=== PATIENT | female | born 1955 | race Caucasian/White ===

== ENCOUNTER 2019-10-02 14:27 | Outpatient (CLI) | payer OTHER, SELFPAY ==
--- NOTE | ~2019-10-02 | MM_ITS ---
EXAMINATION: MM screening tristen BI w ko HISTORY: Screening mammogram TECHNIQUE: Craniocaudal and mediolateral oblique 3-D tomosynthesis images were obtained and synthetic 2-D images were generated. CAD analysis was submitted and interpreted. COMPARISON: 07/10/2018, 05/29/2017 bilateral digital screening mammogram examinations 06/08/2017 diagnostic left digital mammogram and left breast ultrasound BREAST PARENCHYMAL COMPOSITION: The breasts are heterogeneously dense, which may obscure small masses . FINDINGS: Occasional benign calcifications. There is a biopsy marker on the right. History of prior bilateral benign breast biopsies. There is no evidence of suspicious mass, calcification, or architectural distortion to suggest malignancy in eit her breast. There has been no suspicious interval change. IMPRESSION: 1. No mammographic evidence of malignancy. 2. Recommend routine screening mammography in one year. BI-RADS Category 2: Benign finding(s). Reviewed, dictated and finalized at location A.
== END 2019-10-02 14:28 | disposition home or self-care (01) ==
PROVIDERS: PCP Internal Medicine; Visit Provider Obstetrics & Gynecology
DX: Z12.31 Encounter for screening mammogram for malignant neoplasm of breast (principal)
CPT/HCPCS: 77063; 77067

== ENCOUNTER 2020-06-17 12:00 | Emergency (ER) | payer OTHER, SELFPAY ==
--- NOTE | 2020-06-17 12:06 | ED.GENADULT ---
HPI - General Adult General Chief complaint: Eye Problems Stated complaint: eye problems Time Seen by Provider: 06/17/20 12:06 Source: patient Mode of arrival: ambulatory Limitations: no limitations History of Present Illness HPI narrative: 64-year-old female patient presents to the [facility] with complaints of irritation and pain to the right eye that started yesterday. Patient states she has had a little bit of sensitivity to light without eye but denies any new vision changes. Patient denies injury to the eye that she is aware of. Patient states she does wear glasses but denies wearing contacts. Patient denies any copious amounts of discharge or waking up with any dried crusting to the area. Patient states there is a little bit of pain to the eye. Patient denies any fevers, body aches or chills. Related Data Home Medications Medication Instructions Recorded Confirmed diltiazem HCl 180 mg 180 mg PO DAILY 05/15/19 06/17/20 capsule,extended release 24 hr glucosamine sulfate 500 mg capsule 500 mg PO BID 05/15/19 03/15/20 calcium-vit D3-ferrous fumarate tablet PO 10/20/19 03/15/20 600 mg-125 unit-18 mg tablet magnesium oxide 500 mg capsule 500 mg PO DAILY 10/20/19 03/15/20 Allergies Allergy/AdvReac Type Severity Reaction Status Date / Time Penicillins Allergy Unknown Unknown Verified 03/15/20 11:57 Review of Systems Review of Systems: Narrative: CONSTITUTIONAL: Denies fever, chills, or sweats. EYES: Denies visual changes, positive right eye redness and pain with sensitivity to light, denies discharge. ENT: Denies rhinorrhea, congestion, sore throat, or otalgia. CARDIOVASCULAR: Denies chest pain, palpitations, or edema. RESPIRATORY: Denies cough or dyspnea. GASTROINTESTINAL: Denies abdominal pain, nausea, vomiting, or diarrhea. GENITOURINARY: Denies dysuria or hematuria. SKIN: Denies rash or itching. MUSCULOSKELETAL: Denies back pain, joint pain, or myalgia. NEUROLOGIC: Denies headache, numbness, or weakness. PSYCHIATRIC: Denies anxiety or depression. [facility] Past Medical History Medical History Anxiety Arthritis Bone spur of right foot GERD (gastroesophageal reflux disease) Hyperlipidemia Hypertension Patellofemoral arthritis of right knee Skin cancer, basal cell Supraventricular tachycardia, nonsustained Tendinitis of right rotator cuff Vitamin D deficiency Surgical History Surgical History History of arthroscopy of right knee History of back surgery (~1997) History of section (~1986) History of surgical removal of lesion Hx of knee surgery (~1982) Previous section (~1981) Status post debridement of bone spur (~2018) Family History Family History Mother Family history of bipolar disorder Father Family history of pancreatic cancer Patient's father is Sibling Family history of malignant neoplasm of kidney Other Cerebrovascular accident Depression Family history of arthritis Family history of heart disease in male family member before age 55 Social History Social History Smoking status: Never smoker Alcohol intake: never Comments At the time of my signature I agree with nursing past medical history, surgical, social, and family history. There is no relevant family history pertinent to the presenting complaint. Exam Narrative: Exam Narrative: GENERAL: Well-appearing, well-nourished, and in no acute distress. HEAD: Normocephalic, atraumatic. EYES: PERRLA and EOM intact without limitation or complaint of pain, no periorbital soft tissue swelling ,no erythema, warmth or tenderness noted, no obvious deformity. No crusting or swelling.clear tearing noted from right eye.positive photophobia. No nystagmus No FB or lesion on lid eversion. Corneas gr
[2020-06-17 12:15] VITALS: BP 150/90; PULSE 76; RESP 20; TEMP 36.4; O2SAT 98
== END 2020-06-17 12:36 | disposition home or self-care (01) ==
PROVIDERS: Emergency Provider Nurse Practitioner Family; PCP Internal Medicine
DX: S05.01XA Injury of conjunctiva and corneal abrasion without foreign body, right eye, initial encounter (principal); X58.XXXA Exposure to other specified factors, initial encounter; M19.90 Unspecified osteoarthritis, unspecified site; K21.9 Gastro-esophageal reflux disease without esophagitis; E78.5 Hyperlipidemia, unspecified; I10 Essential (primary) hypertension; M17.11 Unilateral primary osteoarthritis, right knee; Z85.828 Personal history of other malignant neoplasm of skin; E55.9 Vitamin D deficiency, unspecified
CPT/HCPCS: 99213; G0463

== ENCOUNTER 2020-12-13 10:35 | Outpatient (CLI) | payer OTHER, SELFPAY ==
--- NOTE | ~2020-12-13 | MM_ITS ---
EXAMINATION: MM screening tristen BI w ko HISTORY: Screening mammogram TECHNIQUE: Craniocaudal and mediolateral oblique 3-D tomosynthesis images were obtained and synthetic 2-D images were generated. CAD analysis was submitted and interpreted. COMPARISON: 10/12/2019, 07/10/2018 bilateral digital screening mammogram examinations 06/08/2017 diagnostic left mammogram and left breast ultrasound 06/08/2017 bilateral digital screening mammogram BREAST PARENCHYMAL COMPOSITION: The breasts are heterogeneously dense, which may obscure small masses . FINDINGS: There is a biopsy marker on the right. There is history of prior bilateral benign breast bi opsies. Focal architectural distortion is noted in the mid to lower outer left breast (MLO Tomosynthesis imag e ). Diagnostic left mammogram and left breast ultrasound examination are recommended. Otherwise there is no evidence of suspicious mass, calcification, or architectural distortion to sugg est malignancy in either breast. There has been no other suspicious interval change. IMPRESSION: 1. Architectural distortion in the mid to lower outer left breast 2. Diagnostic left mammogram and left breast ultrasound examination are recommended. BI-RADS Category 0: Incomplete: Needs additional imaging evaluation. Reviewed, dictated and finalized at location A. IMPRESSION: 1. Architectural distortion in the mid to lower outer left breast 2. Diagnostic left mammogram and left breast ultrasound examination are recomme nded. BI-RADS Category 0: Incomplete: Needs additional imaging evaluation.
== END 2020-12-13 10:36 | disposition home or self-care (01) ==
LOC: ANHIMG 10:39
PROVIDERS: PCP Internal Medicine; Visit Provider Obstetrics & Gynecology
DX: Z12.31 Encounter for screening mammogram for malignant neoplasm of breast (principal); R92.8 Other abnormal and inconclusive findings on diagnostic imaging of breast
CPT/HCPCS: 77063; 77067

== ENCOUNTER 2021-01-11 13:18 | Outpatient (CLI) | payer OTHER, SELFPAY ==
--- NOTE | ~2021-01-11 | MM_ITS ---
EXAMINATION: MM diagnostic mammo unilat LT HISTORY: Follow-up architectural distortion. Previous radial scar biopsy. TECHNIQUE: Additional 3-D tomosynthesis images of the left breast were performed and synthetic 2-D im ages were generated. CAD analysis was submitted and interpreted. COMPARISON: Comparison to multiple prior studies sequentially, with oldest reviewed study dated 10/2016. BREAST PARENCHYMAL COMPOSITION: The breasts are heterogenously dense, which may obscure small masses. FINDINGS: Stable focal architectural distortion outer aspect of the left breast which is indicated by scar marker on the skin surface, consistent with previous radial scar biopsy. No new masses, calcifi cations or architectural distortion in the left breast to suggest malignancy. IMPRESSION: 1. No mammographic evidence for malignancy in the left breast. 2. Routine yearly screening mammogram and regular clinical breast examination are recommended. BI-RADS Category 2: Benign finding(s). Reviewed, dictated and finalized at location A. IMPRESSION: 1. No mammographic evidence for malignancy in the left breast. 2. Routine yearly screening mammogram and regular clinical breast examination a re recommended. BI-RADS Category 2: Benign finding(s).
== END 2021-01-11 13:19 | disposition home or self-care (01) ==
LOC: ANHIMG 13:19
PROVIDERS: PCP Internal Medicine; Visit Provider Obstetrics & Gynecology
DX: R92.8 Other abnormal and inconclusive findings on diagnostic imaging of breast (principal)
CPT/HCPCS: 77065

== ENCOUNTER 2021-01-25 10:47 | Outpatient (CLI) | payer OTHER, SELFPAY ==
[2021-01-25 11:32] LABS: Anion Gap 6 mmol/L (8-16); Blood Urea Nitrogen 23 mg/dL (7-17); Carbon Dioxide 27 mmol/L (22-30); Chloride 107 mmol/L (98-107); Cholesterol 209 mg/dL (0-200); Estimated Glomerular Filt Rate > 60; Glucose 80 mg/dL (65-110); HDL Direct 74 mg/dL; Sodium 140 mmol/L (137-145); Triglycerides 131 mg/dL (<150)
[2021-01-25 11:42] LABS: LDL Cholesterol Direct 93 mg/dL
[2021-01-25 12:24] LABS: Vitamin D 25 Hydroxy 68.4 ng/mL
== END 2021-01-25 10:48 | disposition home or self-care (01) ==
LOC: ANHLAB 10:51
PROVIDERS: PCP Internal Medicine; Visit Provider Internal Medicine
DX: E55.9 Vitamin D deficiency, unspecified (principal); I10 Essential (primary) hypertension; E78.5 Hyperlipidemia, unspecified
CPT/HCPCS: 36415; 80048; 80061; 82306

== ENCOUNTER 2021-12-05 10:34 | Emergency (ER) | payer OTHER, SELFPAY ==
--- NOTE | ~2021-12-05 | XR_ITS ---
EXAMINATION: XR wrist LT min 3V DATE: 12/05/2021 11:23 INDICATION: Left wrist injury. TECHNIQUE: 4 views of left wrist were obtained. COMPARISON: None. FINDINGS: There is a transverse fracture of distal radius with involvement of the distal radioulnar j oint. The distal fracture fragment demonstrates impaction. There is neutral tilt of the distal articu lar surface. Ulnar styloid is intact. There is mild osteoarthritis of first carpometacarpal joint. IMPRESSION: 1. Transverse fracture of distal radius. Reviewed, dictated and finalized at location B.
[2021-12-05 11:05] VITALS: BP 130/83; PULSE 71; RESP 18; TEMP 37.4; O2SAT 100
--- NOTE | 2021-12-05 11:12 | ED.UPPEXIN ---
HPI - Extremity Injury (Upper) General Stated Complaint: lt wrist injury Time Seen by Provider: 12/05/21 11:13 Source: patient Mode of arrival: ambulatory Limitations: no limitations History of Present Illness HPI narrative: Ms. Corey is a 66-year-old female patient presenting to the clinic today with complaints of the left wrist injury/pain. She reports she was playing pickle ball this morning and fell injuring her left wrist. States that it is painful to do any kind of range of motion to her wrist. Has pain and swelling localized to the radius of the left wrist. Related Data Home Medications Medication Instructions Recorded Confirmed diltiazem HCl 180 mg 180 mg PO DAILY 05/15/19 02/21/21 capsule,extended release 24 hr (Cardizem CD) glucosamine sulfate 500 mg capsule 500 mg PO BID 05/15/19 02/21/21 calcium-vit D3-ferrous fumarate tablet PO 10/20/19 02/21/21 600 mg-125 unit-18 mg tablet magnesium oxide 500 mg capsule 500 mg PO DAILY 10/20/19 02/21/21 Allergies Allergy/AdvReac Type Severity Reaction Status Date / Time Penicillins Allergy Unknown Unknown Verified 02/21/21 09:34 Review of Systems Review of Systems: Pertinent positives per HPI. Patient denies any fever, chills, rash, headache, visual changes, dizziness, cough, runny nose, sore throat, shortness of breath, chest pain, palpitations, nausea, vomiting, diarrhea, constipation, abdominal pain, or any urinary issues. PMFSH Past Medical History Medical History Anxiety Arthritis Bone spur of right foot GERD (gastroesophageal reflux disease) Hyperlipidemia Hypertension Patellofemoral arthritis of right knee Skin cancer, basal cell Supraventricular tachycardia, nonsustained Tendinitis of right rotator cuff Vitamin D deficiency Surgical History Surgical History History of arthroscopy of right knee History of back surgery (~1997) History of section (~1986) History of surgical removal of lesion Hx of knee surgery (~1982) Previous section (~1981) Status post debridement of bone spur (~2018) Family History Family History Mother Family history of bipolar disorder Father Family history of pancreatic cancer Patient's father is Sibling Family history of malignant neoplasm of kidney Other Cerebrovascular accident Depression Family history of arthritis Family history of heart disease in male family member before age 55 Social History Social History Smoking status: Never smoker Alcohol intake: never Comments At the time of my signature, I reviewed and agree with the nursing past medical, surgical, social, and family history. There is no relevant family history pertinent to the patient complaint. Exam Narrative: General: Well-developed, well nourished, in no apparent distress Head: Normocephalic, atraumatic. Cardio: Regular rate and rhythm, s1 and s2 normal, no murmur appreciated. Resp: Clear to auscultation bilaterally, no rhonchi, rales, wheezing or rubs. Musculoskeletal: No deformity, swelling noted over the radius, tenderness to palpation over the distal radius, unable to perform any range of motion due to pain, peripheral pulse strong, no cyanosis, cap refill less than 3 seconds, normal gait and station Course Course Emergency Course: Portions of this record may have been created with voice recognition software. Level of Care: Express Care Visit Vital Signs Vital signs: Vital signs reviewed MDM - Extremity Injury (Upper) MDM Narrative Medical decision making narrative: At the time of visit patient is resting comfortably on the exam table. X-ray was performed and patient has a transverse closed left distal radius fracture. Orthopedic referral wa
== END 2021-12-05 12:04 | disposition home or self-care (01) ==
PROVIDERS: Emergency Provider Nurse Practitioner Family; PCP Internal Medicine
DX: S52.502A Unspecified fracture of the lower end of left radius, initial encounter for closed fracture (principal); W19.XXXA Unspecified fall, initial encounter; M19.90 Unspecified osteoarthritis, unspecified site; K21.9 Gastro-esophageal reflux disease without esophagitis; E78.5 Hyperlipidemia, unspecified; I10 Essential (primary) hypertension; Z85.828 Personal history of other malignant neoplasm of skin; E55.9 Vitamin D deficiency, unspecified
CPT/HCPCS: 29125; 73110; 99214; A4565; G0463

== ENCOUNTER 2022-01-11 13:38 | Outpatient (CLI) | payer OTHER, SELFPAY ==
--- NOTE | ~2022-01-11 | MM_ITS ---
EXAMINATION: MM screening tristen BI w ko HISTORY: Screening TECHNIQUE: Craniocaudal and mediolateral oblique 3-D tomosynthesis images were obtained and synthetic 2-D images were generated. CAD analysis was submitted and interpreted. COMPARISON: Comparison to multiple prior studies sequentially, with oldest reviewed study dated 10/2016. BREAST PARENCHYMAL COMPOSITION: The breasts are heterogenously dense, which may obscure small masses FINDINGS: There is no evidence of suspicious mass, calcification, or architectural distortion to sugg est malignancy in either breast. There has been no suspicious interval change. IMPRESSION: 1. No mammographic evidence of malignancy. 2. Recommend routine screening mammography in one year. BI-RADS Category 1: Negative Reviewed, dictated and finalized at location A.
== END 2022-01-11 13:39 | disposition home or self-care (01) ==
LOC: ANHIMG 13:40
PROVIDERS: PCP Internal Medicine; Visit Provider Obstetrics & Gynecology
DX: Z12.31 Encounter for screening mammogram for malignant neoplasm of breast (principal)
CPT/HCPCS: 77063; 77067

== ENCOUNTER 2023-01-16 13:09 | Outpatient (CLI) | payer MEDICARE, SELFPAY ==
--- NOTE | 2023-01-16 14:00 | NEURO_ITS ---
Impression: # Complains of numbness of lower extremities. History of back surgery in the past. 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 # Clinical correlation recommended. Nerve Conduction Studies Anti Sensory Summary Table Stim Site NR Peak (ms) P-T Amp (?V) Site1 Site2 Delta-P (ms) Dist (cm) Henok (m/s) Left Sup Fibular Anti Sensory (Ant Lat Mall) NO RESPONSE 14 cm NR 14 cm Ant Lat Mall 16.0 Right Sup Fibular Anti Sensory (Ant Lat Mall) 14 cm 3.2 12.5 14 cm Ant Lat Mall 3.2 16.0 50 Left Sural Anti Sensory (Lat Mall) Calf 3.3 8.4 Calf Lat Mall 3.3 16.0 48 Right Sural Anti Sensory (Lat Mall) Calf 4.0 11.2 Calf Lat Mall 4.0 16.0 40 Motor Summary Table Stim Site NR Onset (ms) O-P Amp (mV) Site1 Site2 Delta-0 (ms) Dist (cm) Henok (m/s) Left Peroneal Motor (Vastus Med) Ankle 4.7 2.1 Popit Ankle 10.1 42.0 42 Popit 14.8 2.2 Right Peroneal Motor (Vastus Med) Ankle 4.7 2.1 Popit Ankle 8.5 41.0 48 Popit 13.2 1.8 Left Tibial Motor (Abd Celeste Brev) Ankle 4.5 1.3 Knee Ankle 11.4 43.0 38 Knee 15.9 0.6 Right Tibial Motor (Abd Celeste Brev) Ankle 4.9 2.7 Knee Ankle 10.5 44.0 42 Knee 15.4 1.1 F Wave Studies NR F-Lat (ms) L-R F-Lat (ms) Left Peroneal (Mrkrs) (EDB) 59.18 2.12 Right Peroneal (Mrkrs) (EDB) 57.06 2.12 Left Tibial (Mrkrs) (Abd Hallucis) 59.04 1.30 Right Tibial (Mrkrs) (Abd Hallucis) 57.74 1.30 MTDD
== END 2023-01-16 13:10 | disposition home or self-care (01) ==
LOC: ANHNEURO 13:11
PROVIDERS: PCP Nurse Practitioner
DX: G57.82 Other specified mononeuropathies of left lower limb (principal)
CPT/HCPCS: 95910

== ENCOUNTER 2023-03-20 15:41 | Outpatient (CLI) | payer MEDICARE, OTHER, SELFPAY ==
--- NOTE | ~2023-03-20 | MM_ITS ---
EXAMINATION: MM screening tristen BI w ko HISTORY: Screening mammogram TECHNIQUE: Craniocaudal and mediolateral oblique 3-D tomosynthesis images were obtained and synthetic 2-D images were generated. CAD analysis was submitted and interpreted. COMPARISON: 01/11/2022 bilateral screening mammogram 01/11/2021 diagnostic left mammogram 12/13/2020, 10/02/2019, 07/10/2018 bilateral screening mammogram examinations BREAST PARENCHYMAL COMPOSITION: The breasts are heterogeneously dense, which may obscure small masses . FINDINGS: Biopsy marker on the right. Stable mild architectural distortion of the left since 9. History of prior bilateral benign breast biopsies. There is no evidence of suspicious mass, calcif ication, or architectural distortion to suggest malignancy in either breast. There has been no suspic ious interval change. IMPRESSION: 1. No mammographic evidence of malignancy. 2. Recommend routine screening mammography in one year. BI-RADS Category 2: Benign finding(s). Reviewed, dictated and finalized at location A.
== END 2023-03-20 15:42 | disposition home or self-care (01) ==
PROVIDERS: PCP Family Medicine; Visit Provider Obstetrics & Gynecology
DX: Z12.31 Encounter for screening mammogram for malignant neoplasm of breast (principal)
CPT/HCPCS: 77063; 77067

== ENCOUNTER 2023-12-21 14:02 | Outpatient (CLI) | payer MEDICARE, SELFPAY ==
--- NOTE | ~2023-12-21 | XR_ITS ---
XR shoulder RT min 2V Ordering provider: Rogelio Luque MD History: . Pain in right shoulder AFTER PLAYING PICKLE BALL . Comparison: November 15, 2020 FINDINGS: BONES: No acute fracture or dislocation. JOINT SPACES: The acromioclavicular joint is normal. The glenohumeral joint is normal. SOFT TISSUES: Normal. IMPRESSION: No acute osseous abnormality right shoulder. Reviewed, dictated and finalized at location A.
== END 2023-12-21 14:03 | disposition home or self-care (01) ==
LOC: ANHIMG 14:05
PROVIDERS: PCP Family Medicine; Visit Provider Orthopaedic Surgery
DX: M25.511 Pain in right shoulder (principal)
CPT/HCPCS: 73030

== ENCOUNTER 2024-05-19 14:01 | Outpatient (CLI) | payer MEDICARE, SELFPAY ==
--- NOTE | ~2024-05-19 | MM_ITS ---
EXAMINATION: MM screening tristen BI w ko HISTORY: Screening TECHNIQUE: Craniocaudal and mediolateral oblique 3-D tomosynthesis images were obtained and synthetic 2-D images were generated. CAD analysis was submitted and interpreted. COMPARISON: Comparison to multiple prior studies sequentially, with oldest reviewed study dated 07/10. BREAST PARENCHYMAL COMPOSITION: Dense: The breasts are heterogeneously dense, which may obscure small masses FINDINGS: There are developing focal asymmetries centered in the upper outer quadrant of the right br east, middle third. The left breast is stable without evidence for malignancy. IMPRESSION: 1. Developing right breast asymmetries. 2. Additional mammographic views and possible breast ultrasound are recommended. BI-RADS Category 0: Incomplete: Needs additional imaging evaluation. Reviewed, dictated and finalized at location B. SPECIALIST IMPRESSION: 1. Developing right breast asymmetries. 2. Additional mammographic views and possible breast ultrasound are recommended . BI-RADS Category 0: Incomplete: Needs additional imaging evaluation.
== END 2024-05-19 14:02 | disposition home or self-care (01) ==
LOC: ANHIMG 14:04
PROVIDERS: PCP Family Medicine; Visit Provider Obstetrics & Gynecology
DX: Z12.31 Encounter for screening mammogram for malignant neoplasm of breast (principal); R92.8 Other abnormal and inconclusive findings on diagnostic imaging of breast
CPT/HCPCS: 77063; 77067

== ENCOUNTER 2025-01-21 17:09 | Emergency (ER) | payer MEDICARE, SELFPAY ==
--- NOTE | ~2025-01-21 | XR_ITS ---
EXAM: [id number] DATE: 01/21/2025 17:47 HISTORY: pain . COMPARISON: None available. FINDINGS: Decreased mineralization. Craniocervical association and atlantoaxial joint are aligned. M ild degenerative change at the atlantodental interval. No prevertebral soft tissue swelling. Mild rev ersal of the cervical lordosis centered at C4-5. Trace anterolisthesis at C4-5. Trace retrolisthesis at C5-6. Vertebral body heights are maintained. Normal disc spaces. Mild disc space narrowing at C5-6 . Mild-moderate facet hypertrophy and sclerosis in the lower cervical spine. IMPRESSION: Osteopenia. No definite fracture or traumatic malalignment detected in the cervical spine . Minimal grade 1 listheses at C4-5 and C5-6, presumably on a degenerative basis. If pain persists or clinical suspicion of injury is high, recommend CT or MRI of the cervical spine for further evaluati on Reviewed, dictated and finalized at location K. IMPRESSION: Osteopenia. No definite fracture or traumatic malalignment detected in the cervical spine. Minimal grade 1 listheses at C4-5 and C5-6, presumably on a degenerative basis. If pain persists or clinical suspicion of injury is hi gh, recommend CT or MRI of the cervical spine for further evaluation
--- OUTSIDE RECORDS SUMMARY | 2025-01-21 17:11 | XMS_ITS | Referral Summary ---
Author Organization [facility] Address [address] [place] [address] Care Team Providers Care Obedience Trainer Name Role Phone No, Physician Primary Care Provider [phone] Encounters Date Type Department Care Team Description 12/17/[address] [place] [id number] Kary Armando MD 12/17/2024 2:10 PM CDT Clinical Support [address] [place] [address] Age-related osteoporosis without current pathological fracture 12/17/2024 2:40 PM CDT Office Visit [address] [phone] Kary Armando MD Age-related osteoporosis without current pathological fracture (Primary Dx) from Last 3 Months Allergies Active Allergy Reactions Criticality Noted Date Comments Penicillins Rash,Hives Medium 05/17/2015 Medications aspirin (ASPIR-81) 81 mg tablet 81 mg. 0 0 09/04/2016 Active multivitamin capsule 0 0 09/04/2016 Active GLUCOSAMINE HCL/CHONDR PAGE A NA (GLUCOSAMINE-CH ONDROITIN) 750-600 mg tablet 0 0 09/04/2016 Active calcium carbonate-vitam in D3 (CALCIUM 600 + D,3,) 1500 mg (600 mg elemental) -200 units per tablet 0 0 09/04/2016 Active MAGNESIUM ORALIndications :hypomagnesemia 500 mg Acti ve dilTIAZem XR (dilTIAZem CD) 240 mg 24 hr capsule Take 1 capsule (240 mg total) by mouth daily 90 capsule 2 07/03/2024 Active Active Problems Problem Noted Date Diagnosed Date Other osteoporosis without current pathological fracture 01/23/2024 Atrial fibrillation 12/02/2019 Atrial flutter 12/02/2019 Palpitations 09/27/2016 Supraventricular tachycardia 06/30/2016 Social History Tobacco Use Types Packs/Day Years Used Date Smoking Tobacco: Never Smokeless Tobacco: Never Alcohol Use Standard Drinks/Week Comments No 0 (1 standard drink = 0.6 oz pur e alcohol) Hunger Vital Sign Answer Date Recorded Within the past 12 months, y ou worried that your food would run out before you got the money to buy more. Never true 02/18/20 Within the past 12 months, t he food you bought just didn't last and you didn't have money to get more. Never true 02/18/2024 Personal Safety Answer Date Recorded Have you ever been in or are you currently in a harmful physical or emotional relationship or is someone making you feel afraid or unsafe? 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 Gender Identity Female 03/15/2020 10:12 AM CDT Sexual Orientation Not on file Last Filed Vital Signs Vital Sign Reading Time Taken Comments Blood Pressure 135/85 02/18/2024 1:30 PM CDT Pulse 67 02/18/2024 1:30 PM CDT Temperature 36.6 C (97.9 F) 02/18/2024 1:30 PM CDT Respiratory Rate 15 02/18/2024 1:30 PM CDT Oxygen Saturation 93% 02/18/2024 1:30 PM CDT Inhaled Oxygen Concentration - - Weight 64.4 kg (142 lb) 12/17/2024 2:22 PM CDT Height 168.9 cm (5' 6.5) 12/17/2024 2:22 PM CDT Body Mass Index 22.58 12/17/2024 2:22 PM CDT Plan of Treatment Not on file Procedures Procedure Name Priority Date/Time Associated Diagnosis Comments DEXA TBS AXIAL SKELETON BONE DENSITY 1 OR MORE SITES Schedule Routine, Read Routine (OP Routine) 12/17/2024 2:16 PM CDT Age-related osteoporosis without current pathological fracture from Last 3 Months Results * Dexa TBS Axial Skeleton Bone Density 1 or more sites (12/17/2024 2:16 PM CDT) Anatomical Region Laterality Modality Wrist, Body N/A Radiographic Sue ging Narrative 12/17/2024 4:16 PM CDT Patient Name: Tammy Farah Date of : 1955 Date of scan: 12/17/2024 Bone mineral density was performed on a [employer] Discovery Densitometer. Based on machine cross-calibration and precision studies the least significant changes of this densitometer is 0.024 g/cm2 at the spine, 0.020 g/cm2 at the total proximal femur, and 0.014g/cm2 at the forearm. HISTORY: This is a 69 y.o. postmenopausal female with a history of osteoporosis. She reports that she has never smoked. She has never used smokeless tobacco. Currently on treatment with calcium, vitamin D, and zoledronic acid (Reclast), previously treated with raloxifene (Evista), and current complaint of arm pain. INDICATIONS: Menopause status, treatment monitoring, history of prior wrist fracture, and history of osteoporosis. FINDINGS: BONE MINERAL DENSITY OF THE LUMBAR SPINE Bone Mineral Density (BMD) of the lumbar spine was measured from L1-L3 and the average density was calculated to be 0.813 gm/cm2. This corresponds to a T-score (standard deviations from the mean of young adults) of -1.9. When compared to the previous study of 12/11/2023 there has been a 0.048 gm/cm (6.2%) increase in bone density that is considered significant. BONE MINERAL DENSITY OF THE PROXIMAL FEMUR Bone Mineral Density (BMD) of the left hip total was found to be 0.820 gm/cm2. This corresponds to a T-score standard deviations from the mean of young adults of -1.0. Femoral neck is 0.692 gm/cm2 with a T-score (standard deviations from the mean of young adults) of -1.4. When compared to the previous study of 12/11/2023 there has been no significant changes in bone density. SUMMARY: Bone mineral density shows evidence of low bone mass at the lumbar spine and proximal femur and moderately increased fracture risk (Osteopenia). There has been a significant increase in bone density since previous measurement. L4 excluded from bone mineral density analysis of the lumbar spine due to bone density being more than 1 standard deviation discrepant relative to one adjacent vertebra. Clinical correlation is recommended. The lumbar spine Trabecular Bone Score is 1.248 which suggests partially degraded bone microarchitecture compared to the general population. Final decisions regarding diagnostic or therapeutic recommendations should include BMD, TBS, additional clinical risk factors as well the clinical context of the patient. Please see attached TBS results for further details. ADDITIONAL COMMENTS: Postmenopausal Women and Men Over 50: Diagnostic criteria: Osteoporosis: BMD at or below -2.5 T-score; Osteopenia (low bone mass): BMD between -1.0 and -2.5 T-score. If the patient has a history of a fragility fracture, a fracture that occurred with trauma equivalent to a fall from a standing position or less, then the diagnosis is osteoporosis regardless of bone density. The history and data sections of the bone mineral density scan were prepared by Fransisca Tipton) DIETER who is accredited by the International Society of Clinical Densitometry. The overall patient assessment and scan interpretation were performed by Kary Armando M.D. who is certified by the International Society of Clinical Densitometry. [id number] Kary Armando MD [facility] [place] DXA PROCEDURES Final Resu lt from Last 3 Months Insurance [employer] MEDICARE [facility] A[facility] MEDIC[facility] Care Teams Obedience Trainer Relationship Specialty Start Date End Date No, Physician PCP - General 11/26/18
--- OUTSIDE RECORDS SUMMARY | 2025-01-21 17:12 | XMS_ITS | Continuity of Care Document ---
Author Organization [facility] Address [address] [place] [address] Phone Care Team Providers Care Cash Posting Representative Name Role Phone Noel Ron Unavailable Unavailable Advance Directives Directive Yes / No Effective Date File Name No Information Encounters Encounter Description Practice Location Reason(s) For Visit Diagnoses Date Provider Providers Copied on Encounter [facility], [address] [place] [address], [facility], tel:[phone] *[facility] No Information Asaf Cohen. [address] [place] [address], [facility], . tel:[phone] Family History Family Member Type Diagnosis Age At Onset No Information Payers Payer name Insurance type Covered constitution party ID Authoriza tion(s) No Information Social History Type Description Quantity Date Captured Comments Sex Female Smoking Status No Information Chief Complaint And Reason For Visit No Information Reason For Referral Reason For Referral No Information History Of Present Illness Encounter Date Complaint History Of Prese nt Illness No Information Functional Status Date Functional Assessmen t No Information Instructions Date Instruction Additional Infor mation No Information Assessments Type Assessment Date No Information Patient Care Teams Name Effective Dates (start - stop) Status Members No Information
--- OUTSIDE RECORDS SUMMARY | 2025-01-21 17:12 | XMS_ITS | Clinical Summary ---
Author Organization [facility] Address [address] [place] [address] Care Team Providers Care Sales Operations Assistant Name Role Phone Luiz Choudhury MD Unavailable [phone] Antonio MD Primary Care Provider [phone] Source Comments [facility],non-owned Affiliates and Associated Physician Practices is amultiple site organization consisting of ambulatory clinics and hospital sitesin [place], [place], [place] and [place]. This disclosure is being madepursuant to the Care Everywhere program and may not contain all information available regarding this patient. Last updated 18.[facility] [employer] Allergies Active Allergy Reactions Criticality Noted Date Comments Penicillins 10/09/2011 Medications * Be aware that medications may not be up to date on this document. Alwaysverify current medications with the patient. meloxicam (MOBIC) 7.5 MG tablet Take 1 Tab by mouth 2 times daily. 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 Gender Identity Not on file Sexual Orientation Not on file Plan of Treatment Health Maintenance Due Date Last Done Comments BONE DENSITY TESTING 1957 COLOGUARD (AGES 45-75) - COL ON CA SCREENING 1957 COLON MONITORING 1957 COLONOSCOPY - COLON CA SCREENING 1957 CT COLONOGRAPHY - COLON CA SCREENING 1957 Colorectal Cancer Screening 1957 FIT - COLON CA SCREENING 1957 FLEX SIG - COLON CA SCREENING 1957 LIPID TESTING 1957 MAMMOGRAM 1957 HEPATITIS C SCREENING 08/13/1975 PNEUMOCOCCAL VACCINE 50+ (1 of 1 - PCV) 2007 ZOSTER VACCINE (1 of 2) 2007 COVID-19 VACCINE (1 - 2023-2 5 season) 2024 DEPRESSION SCREENING 06/25/2024 MEDICARE AWV CALENDAR YEAR 2024 INFLUENZA VACCINE (#1) 2025 DTAP/TDAP/TD VACCINES (2 - T d or Tdap) 03/07/2028 03/07/2018 Respiratory Syncytial Virus (RSV) Vaccine Pt: or over 60 yrs (1 - 1-dose 75+ series) 2032 HEPATITIS B VACCINE Aged Out No longe r eligible based on patient's age to complete this topic HIB VACCINE Aged Out No longer eligi ble based on patient's age to complete this topic HPV VACCINE Aged Out No longer eligi ble based on patient's age to complete this topic MENINGOCOCCAL (Group B) VACC INE SHARED DECISION-MAKING Aged Out No longer eligibl e based on patient's age to complete this topic MENINGOCOCCAL GROUPS A/C/Y/W VACCINE Aged Out No longer eligible b ased on patient's age to complete this topic Insurance AETNA AETNA MEDICARE ADV AETNA Care Teams Sales Operations Assistant Relationship Specialty Start Date End Date Ward Antonio MD [address] [place] [address] PCP - General Internal Medicine 10/09/11 Luiz Choudhury MD Orthopedic Surgery 10/09/11
--- OUTSIDE RECORDS SUMMARY | 2025-01-21 17:12 | XMS_ITS | Encounter Summary ---
Author Organization [facility] Address [address] [place] [address] Care Team Providers Care Technical Manager [employer] Name Role Phone Lucrecia Candelario MD Primary Care Provider + Encounter Details Date Type Department Care Team (Latest Contact Info) Description 03/02/2008 Outpatient Historical [facility] Alicia Barnes MD [address] [place] [address] [place] [phone] Marisa Nation MD [address] [facility] Dept [place] [address] Abnormal Mammogram, Unspecified; Mammographic Microcalcification; Encounter for Long-Term (Current) Use of Other Medications Social History Tobacco Use Types Packs/Day Years Used Date Smoking Tobacco: Never Assessed Comments Unknown Sex and Gender Information Value Date Recorded Sex Assigned at Not on file 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 Gender Identity Not on file Sexual Orientation Not on file documented as of this encounter Plan of Treatment Not on file documented as of this encounter Procedures Procedure Name Priority Date/Time Associated Diagnosis Comments PATHOLOGY Routine 03/02/2008 5:00 PM CDT MAMMO BREAST SPECIMEN RT Routine 03/02/2008 12:15 PM CDT MAMMO DIAGNOSTIC UNI RIGHT W OR WO CAD Routine 03/02/2008 12:15 PM CDT XR CONSULTATION Routine 03/02/2008 12:15 PM CDT MAMMO STEREOTACTIC BREAST BX RT Routine 03/02/2008 12:14 PM CDT documented in this encounter Results * PATHOLOGY (03/02/2008 5:00 PM CDT) FINAL REPORT [facility] [address], [place] [address] Patient: TAMMY FARAH : 1955 Procedure Date: 03/02/2008 Accession Date: 03/03/2008 Case No: [id number] Ordering Dr: MARISA NATION Case types AW, BW, FW, NW and SH are performed by [facility], [place], [place] SURGICAL PATHOLOGY & NON-GYNECOLOGIC CYTOPATHOLOGY REPORT DIAGNOSIS RIGHT BREAST, 9-GAUGE CORE BIOPSY: - COLUMNAR CELL CHANGE. - MICROCALCIFICATIONS PRESENT. Specimen Description: Right breast calcs. Operative Procedure: Core biopsy. Patient Information/History/Di agnosis: Calcifications; rule out DCIS. Gross: Received in a single container and labeled GaganTammy klein Danna. right breast calc are eight fibrofatty core biopsy tissues, each 0.3 cm in diameter and measuring 1.1, 1.0, 1.1, 1.3, 1.1, 1.5, 1.4, and 1.3 cm in lengths. The entire specimen is submitted as follows: in cassettes A1 and A2-three cores each; A3-two cores. [facility] 03.03.2008 12:12 pm Microscopic: Sections are labeled [id number], Tammy Farah Danna. The core biopsy from the right breast displays foci of columnar cell change associated with microcalcifications. COMMENT: Columnar cell lesions of the breast may be broadly categorized as (1) columnar cell change, with or without atypia, and (2) columnar cell hyperplasia, with or without atypia. Columnar cell lesions without atypia require no further treatment. The limited available clinical data suggest that columnar cell lesions with atypia, also designated as flat epithelial atypia, but without complex architectural patterns, may be associated with a very low risk of progression to invasive carcinoma, the magnitude of which has not been established. When columnar cell lesions with atypia (flat epithelial atypia) are encountered in needle core biopsies or in limited en bloc biopsies, subsequent excision of the lesion is recommended. Based upon current understanding, the presence of columnar cell lesions with atypia (flat epithelial atypia) alone in larger, excisional specimens requires no additional surgical management. Reference: Adv Mary Pathol 2003;10:113-124. BBK/GIANNI 03.04.2008 10:37 am Staging Form: No. ELECTRONIC SIGNATURE FOR DAMON MACK M.D.- 03/04/08 11:19 am INTERFACE SYSTEM 03/02/2008 5:00 PM CDT us Marisa Nation MD PATHOLOGY/CYTOLOGY ORDERA BLES Final Result INTERFACE SYSTEM Refer to clinic/hospital department * MAMMO BREAST SPECIMEN RT (03/02/2008 12:15 PM CDT) Anatomical Region Laterality Modality Breast Right Other 03/02/2008 12:1 5 PM CDT Narrative 03/02/2008 4:33 PM CDT [address] [address] Admit Date: 03/02/2008 TAMMY FARAH Sex: F Admit Prov: ALICIA MYLES Date: 1955 Primary Care Prov: LUCRECIA CANDELARIO CMRN: [id number] Room: MATTHEW SSN: [id number] IMAGING SERVICES Ordering Prov: ALICIA MYLES Accession Number: [id number] Interpretation RIGHT BREAST STEREOTACTICALLY GUIDED CORE BIOPSY, BREAST SPECIMEN RADIOGRAPH, FOLLOWUP TWO-VIEW DIGITAL MAMMOGRAM, 03/02/2008 History: Clustered calcifications, upper-inner right breast. Stereotactically guided core biopsy for clustered calcifications in the upper-inner right breast was performed. Comparison is made with an outside mammogram from [facility] dated 02/10/2008. The overlying skin was cleansed with Betadine. 1% lidocaine buffered with sodium bicarbonate was injected for superficial anesthesia. Deep anesthesia was obtained with 2% lidocaine with epinephrine. A small 4 mm skin pepe was made with a #11 blade scalpel. A 9-gauge vacuum-assisted Suros biopsy needle was inserted through the skin pepe and positioned anterior to the calcifications. Pre- and postfire images were obtained to confirm accurate positioning. The system was then activated and multiple cores were obtained. The cores were placed on a Carri dish. A specimen radiograph was obtained, demonstrating clustered calcifications of concern. The specimen was then placed in formalin and sent to pathology. A postbiopsy localization clip was deployed. A followup two-view mammogram demonstrated the clip to be in satisfactory position. After the biopsy was completed, pressure was held on the site until all visible signs of bleeding had subsided. The incision was closed with Dermabond/Steri-Strip. An ice pack was given for comfort. Postbiopsy instructions were reviewed with the patient. She left the breast center in good condition. Impression: Status post a stereotactically guided core biopsy for clustered calcifications in the upper-inner right breast. Pathology pending. Dictated by: MARISA NATION Electronically signed by: MARISA NATION 03/02/2008 16:33 Transcribed: 03/02/2008 15:24 DKT Procedure Note Marisa Nation - 03/02/[address] [address] Admit Date: 03/02/2008 TAMMY FARAH Danna Sex: F Admit Prov: ALICIA MYLES Date: 1955 Primary Care Prov: LUCRECIA CANDELARIO CMRN: [id number] Room: [facility] SSN: [id number] IMAGING SERVICES Ordering Prov: ALICIA MYLES Interpretation RIGHT BREAST STEREOTACTICALLY GUIDED CORE BIOPSY, BREAST SPECIMEN RADIOGRAPH, FOLLOWUP TWO-VIEW DIGITAL MAMMOGRAM, 03/02/2008 History: Clustered calcifications, upper-inner right breast. Stereotactically guided core biopsy for clustered calcifications inthe upper-inner right breast was performed. Comparison is made with anoutside mammogram from [facility] dated 02/10/2008. The overlying skin was cleansed with Betadine. 1% lidocaine bufferedwith sodium bicarbonate was injected for superficial anesthesia. Deepanesthesia was obtained with 2% lidocaine with epinephrine. A small 4 mm skinnick was made with a #11 blade scalpel. A 9-gauge vacuum-assisted Surosbiopsy needle was inserted through the skin pepe and positioned anterior tothe calcifications. Pre- and postfire images were obtained to confirmaccurate positioning. The system was then activated and multiple cores were obtained. The cores were placed on a Carri dish. A specimen radiograph wasobtained, demonstrating clustered calcifications of concern. The specimen wasthen placed in formalin and sent to pathology. A postbiopsy localization clip was deployed. A followup two-viewmammogram demonstrated the clip to be in satisfactory position. After the biopsy was completed, pressure was held on the site untilall visible signs of bleeding had subsided. The incision was closedwith Dermabond/Steri-Strip. An ice pack was given for comfort.Postbiopsy instructions were reviewed with the patient. She left the breastcenter in good condition. Impression: Status post a stereotactically guided core biopsy for clustered calcifications in the upper-inner right breast. Pathology pending. Dictated by: MARISA NATION Electronically signed by: MARISA NATION 03/02/2008 16:33 Transcribed: 03/02/2008 15:24 DKT us Alciia Myles MD MAMMO ORDERABLES Final Resul t * MAMMO DIGITAL DIAG UNI RIGHT (03/02/2008 12:15 PM CDT) Anatomical Region Laterality Modality Breast Right Other 03/02/2008 12:1 5 PM CDT Narrative 03/05/2008 10:41 AM CDT [address] [address] Admit Date: 03/02/2008 TAMMY FARAH Sex: F Admit Prov: ALICIA MYLES Date: 1955 Primary Care Prov: LUCRECIA CANDELARIO CMRN: [id number] Room: [facility]THEW SSN: [id number] IMAGING SERVICES Ordering Prov: ALICIA MYLES Accession Number: [id number] Addendum Pathology indicates benign columnar cell change without atypia. Calcifications were identified. Imaging findings are concordant. This is a false positive. Recommend routine followup. Assessment BIRADS: Post procedure mammograms for marker placement Recommendation: No recommendation required Dictated by: MARISA NATION Electronically signed by: MARISA NATION 03/05/2008 10:41 Transcribed: 03/04/2008 23:16 AMK Interpretation RIGHT BREAST STEREOTACTICALLY GUIDED CORE BIOPSY, BREAST SPECIMEN RADIOGRAPH, FOLLOWUP TWO-VIEW DIGITAL MAMMOGRAM, 03/02/2008 History: Clustered calcifications, upper-inner right breast. Stereotactically guided core biopsy for clustered calcifications in the upper-inner right breast was performed. Comparison is made with an outside mammogram from [facility] dated 02/10/2008. The overlying skin was cleansed with Betadine. 1% lidocaine buffered with sodium bicarbonate was injected for superficial anesthesia. Deep anesthesia was obtained with 2% lidocaine with epinephrine. A small 4 mm skin pepe was made with a #11 blade scalpel. A 9-gauge vacuum-assisted Suros biopsy needle was inserted through the skin pepe and positioned anterior to the calcifications. Pre- and postfire images were obtained to confirm accurate positioning. The system was then activated and multiple cores were obtained. The cores were placed on a Carri dish. A specimen radiograph was obtained, demonstrating clustered calcifications of concern. The specimen was then placed in formalin and sent to pathology. A postbiopsy localization clip was deployed. A followup two-view mammogram demonstrated the clip to be in satisfactory position. After the biopsy was completed, pressure was held on the site until all visible signs of bleeding had subsided. The incision was closed with Dermabond/Steri-Strip. An ice pack was given for comfort. Postbiopsy instructions were reviewed with the patient. She left the breast center in good condition. Impression: Status post a stereotactically guided core biopsy for clustered calcifications in the upper-inner right breast. Pathology pending. Report revised on 03/05/2008 10:41:25 AM by MARISA NATION Assessment BIRADS: Post procedure mammograms for marker placement Recommendation: No recommendation required Dictated by: MARISA NATION Electronically signed by: MARISA NATION 03/02/2008 16:33 Transcribed: 03/02/2008 15:24 DKT Procedure Note Marisa Nation - 03/05/2008 [facility] [address] [place], [place] [address] Admit Date: 03/02/2008 TAMMY FARAH Sex: F Admit Prov: ALICIA MYLES Date: 1955 Primary Care Prov: LUCRECIA CANDELARIO CMRN: [id number] Room: [facility] SSN: [id number] IMAGING SERVICES Ordering Prov: ALICIA MYLES Addendum Pathology indicates benign columnar cell change without atypia. Calcifications were identified. Imaging findings are concordant. Thisis a false positive. Recommend routine followup. Assessment BIRADS: Post procedure mammograms for marker placement Recommendation: No recommendation required Dictated by: MARISA NATION Electronically signed by: MARISA NATION 03/05/2008 10:41 Transcribed: 03/04/2008 23:16 AMK Interpretation RIGHT BREAST STEREOTACTICALLY GUIDED CORE BIOPSY, BREAST SPECIMEN RADIOGRAPH, FOLLOWUP TWO-VIEW DIGITAL MAMMOGRAM, 03/02/2008 History: Clustered calcifications, upper-inner right breast. Stereotactically guided core biopsy for clustered calcifications inthe upper-inner right breast was performed. Comparison is made with anoutside mammogram from [facility] dated 02/10/2008. The overlying skin was cleansed with Betadine. 1% lidocaine bufferedwith sodium bicarbonate was injected for superficial anesthesia. Deepanesthesia was obtained with 2% lidocaine with epinephrine. A small 4 mm skinnick was made with a #11 blade scalpel. A 9-gauge vacuum-assisted Surosbiopsy needle was inserted through the skin pepe and positioned anterior tothe calcifications. Pre- and postfire images were obtained to confirmaccurate positioning. The system was then activated and multiple cores were obtained. The cores were placed on a Carri dish. A specimen radiograph wasobtained, demonstrating clustered calcifications of concern. The specimen wasthen placed in formalin and sent to pathology. A postbiopsy localization clip was deployed. A followup two-viewmammogram demonstrated the clip to be in satisfactory position. After the biopsy was completed, pressure was held on the site untilall visible signs of bleeding had subsided. The incision was closedwith Dermabond/Steri-Strip. An ice pack was given for comfort.Postbiopsy instructions were reviewed with the patient. She left the breastcenter in good condition. Impression: Status post a stereotactically guided core biopsy for clustered calcifications in the upper-inner right breast. Pathology pending. Report revised on 03/05/2008 10:41:25 AM by MARISA NATION Assessment BIRADS: Post procedure mammograms for marker placement Recommendation: No recommendation required Dictated by: MARISA NATION Electronically signed by: MARISA NATION 03/02/2008 16:33 Transcribed: 03/02/2008 15:24 DKT us Alicia Myles MD MAMMO ORDERABLES Edited * XR CONSULTATION (03/02/2008 12:15 PM CDT) 03/02/2008 12:1 5 PM CDT Narrative INTERFACE SYSTEM - 03/02/2008 4:33 PM CDT [facility] [address], [place] [address] Admit Date: 03/02/2008 TAMMY FARAH Sex: F Admit Prov: ALICIA MYLES Date: 1955 Primary Care Prov: LUCRECIA CANDELARIO CMRN: [id number] Room: [facility] SSN: [id number] IMAGING SERVICES Ordering Prov: ALICIA MYLES Accession Number: [id number] Interpretation RIGHT BREAST STEREOTACTICALLY GUIDED CORE BIOPSY, BREAST SPECIMEN RADIOGRAPH, FOLLOWUP TWO-VIEW DIGITAL MAMMOGRAM, 03/02/2008 History: Clustered calcifications, upper-inner right breast. Stereotactically guided core biopsy for clustered calcifications in the upper-inner right breast was performed. Comparison is made with an outside mammogram from [facility] dated 02/10/2008. The overlying skin was cleansed with Betadine. 1% lidocaine buffered with sodium bicarbonate was injected for superficial anesthesia. Deep anesthesia was obtained with 2% lidocaine with epinephrine. A small 4 mm skin pepe was made with a #11 blade scalpel. A 9-gauge vacuum-assisted Suros biopsy needle was inserted through the skin pepe and positioned anterior to the calcifications. Pre- and postfire images were obtained to confirm accurate positioning. The system was then activated and multiple cores were obtained. The cores were placed on a Carri dish. A specimen radiograph was obtained, demonstrating clustered calcifications of concern. The specimen was then placed in formalin and sent to pathology. A postbiopsy localization clip was deployed. A followup two-view mammogram demonstrated the clip to be in satisfactory position. After the biopsy was completed, pressure was held on the site until all visible signs of bleeding had subsided. The incision was closed with Dermabond/Steri-Strip. An ice pack was given for comfort. Postbiopsy instructions were reviewed with the patient. She left the breast center in good condition. Impression: Status post a stereotactically guided core biopsy for clustered calcifications in the upper-inner right breast. Pathology pending. Dictated by: MARISA NATION Electronically signed by: MARISA NATION 03/02/2008 16:33 Transcribed: 03/02/2008 15:25 DKT Procedure Note Marisa Nation - 03/02/2008 [place] [id number], [place] [address] Admit Date: 03/02/2008 TAMMY FARAH Sex: F Admit Prov: ALICIA MYLES Date: 1955 Primary Care Prov: LUCRECIA CANDELARIO CMRN: [id number] Room: [facility]W SSN: [id number] IMAGING SERVICES Ordering Prov: ALICIA MYLES Interpretation RIGHT BREAST STEREOTACTICALLY GUIDED CORE BIOPSY, BREAST SPECIMEN RADIOGRAPH, FOLLOWUP TWO-VIEW DIGITAL MAMMOGRAM, 03/02/2008 History: Clustered calcifications, upper-inner right breast. Stereotactically guided core biopsy for clustered calcifications inthe upper-inner right breast was performed. Comparison is made with anoutside mammogram from [facility] dated 02/10/2008. The overlying skin was cleansed with Betadine. 1% lidocaine bufferedwith sodium bicarbonate was injected for superficial anesthesia. Deepanesthesia was obtained with 2% lidocaine with epinephrine. A small 4 mm skinnick was made with a #11 blade scalpel. A 9-gauge vacuum-assisted Surosbiopsy needle was inserted through the skin pepe and positioned anterior tothe calcifications. Pre- and postfire images were obtained to confirmaccurate positioning. The system was then activated and multiple cores were obtained. The cores were placed on a Carri dish. A specimen radiograph wasobtained, demonstrating clustered calcifications of concern. The specimen wasthen placed in formalin and sent to pathology. A postbiopsy localization clip was deployed. A followup two-viewmammogram demonstrated the clip to be in satisfactory position. After the biopsy was completed, pressure was held on the site untilall visible signs of bleeding had subsided. The incision was closedwith Dermabond/Steri-Strip. An ice pack was given for comfort.Postbiopsy instructions were reviewed with the patient. She left the breastcenter in good condition. Impression: Status post a stereotactically guided core biopsy for clustered calcifications in the upper-inner right breast. Pathology pending. Dictated by: MARISA NATION Electronically signed by: MARISA NATION 03/02/2008 16:33 Transcribed: 03/02/2008 15:25 DKT us Alicia Myles MD DIAGNOSTIC IMAGING ORDERABLE S Final Result Performing Organization Address City/State/[facility] Co de Phone Number INTERFACE SYSTEM Refer to clinic/hospital department * MAMMO STEREOTACTIC BREAST BX RT (03/02/2008 12:14 PM CDT) Anatomical Region Laterality Modality Breast Right Other 03/02/2008 12:1 4 PM CDT Narrative 03/02/2008 4:33 PM CDT [place] [address] [address], [place] [address] Admit Date: 03/02/2008 TAMMY FARAH Sex: F Admit Prov: ALICIA MYLES Date: 1955 Primary Care Prov: LUCRECIA CANDELARIO Danna CMRN: [id number] Room: [facility] SSN: [id number] IMAGING SERVICES Ordering Prov: ALICIA MYLES Accession Number: [id number] Interpretation RIGHT BREAST STEREOTACTICALLY GUIDED CORE BIOPSY, BREAST SPECIMEN RADIOGRAPH, FOLLOWUP TWO-VIEW DIGITAL MAMMOGRAM, 03/02/2008 History: Clustered calcifications, upper-inner right breast. Stereotactically guided core biopsy for clustered calcifications in the upper-inner right breast was performed. Comparison is made with an outside mammogram from [facility] dated 02/10/2008. The overlying skin was cleansed with Betadine. 1% lidocaine buffered with sodium bicarbonate was injected for superficial anesthesia. Deep anesthesia was obtained with 2% lidocaine with epinephrine. A small 4 mm skin pepe was made with a #11 blade scalpel. A 9-gauge vacuum-assisted Suros biopsy needle was inserted through the skin pepe and positioned anterior to the calcifications. Pre- and postfire images were obtained to confirm accurate positioning. The system was then activated and multiple cores were obtained. The cores were placed on a Carri dish. A specimen radiograph was obtained, demonstrating clustered calcifications of concern. The specimen was then placed in formalin and sent to pathology. A postbiopsy localization clip was deployed. A followup two-view mammogram demonstrated the clip to be in satisfactory position. After the biopsy was completed, pressure was held on the site until all visible signs of bleeding had subsided. The incision was closed with Dermabond/Steri-Strip. An ice pack was given for comfort. Postbiopsy instructions were reviewed with the patient. She left the breast center in good condition. Impression: Status post a stereotactically guided core biopsy for clustered calcifications in the upper-inner right breast. Pathology pending. Assessment BIRADS: Post procedure mammograms for marker placement Recommendation: No recommendation required Dictated by: MARISA NATION Electronically signed by: MARISA NATION 03/02/2008 16:33 Transcribed: 03/02/2008 15:25 [facility] Procedure Note Marisa Nation - 03/02/2008 [place] [address] [place], [place] [address] Admit Date: 03/02/2008 TAMMY FARAH Sex: F Admit Prov: ALICIA MYLES Date: 1955 Primary Care Prov: LUCRECIA CANDELARIO CMRN: [id number] Room: [facility] SSN: [id number] IMAGING SERVICES Ordering Prov: ALICIA MYLES Interpretation RIGHT BREAST STEREOTACTICALLY GUIDED CORE BIOPSY, BREAST SPECIMEN RADIOGRAPH, FOLLOWUP TWO-VIEW DIGITAL MAMMOGRAM, 03/02/2008 History: Clustered calcifications, upper-inner right breast. Stereotactically guided core biopsy for clustered calcifications inthe upper-inner right breast was performed. Comparison is made with anoutside mammogram from [facility] dated 02/10/2008. The overlying skin was cleansed with Betadine. 1% lidocaine bufferedwith sodium bicarbonate was injected for superficial anesthesia. Deepanesthesia was obtained with 2% lidocaine with epinephrine. A small 4 mm skinnick was made with a #11 blade scalpel. A 9-gauge vacuum-assisted Surosbiopsy needle was inserted through the skin pepe and positioned anterior tothe calcifications. Pre- and postfire images were obtained to confirmaccurate positioning. The system was then activated and multiple cores were obtained. The cores were placed on a Carri dish. A specimen radiograph wasobtained, demonstrating clustered calcifications of concern. The specimen wasthen placed in formalin and sent to pathology. A postbiopsy localization clip was deployed. A followup two-viewmammogram demonstrated the clip to be in satisfactory position. After the biopsy was completed, pressure was held on the site untilall visible signs of bleeding had subsided. The incision was closedwith Dermabond/Steri-Strip. An ice pack was given for comfort.Postbiopsy instructions were reviewed with the patient. She left the breastcenter in good condition. Impression: Status post a stereotactically guided core biopsy for clustered calcifications in the upper-inner right breast. Pathology pending. Assessment BIRADS: Post procedure mammograms for marker placement Recommendation: No recommendation required Dictated by: MARISA NATION Electronically signed by: MARISA NATION 03/02/2008 16:33 Transcribed: 03/02/2008 15:25 DKT us Alicia Mlyes MD MAMMO ORDERABLES Final Resul t documented in this encounter Visit Diagnoses Diagnosis Abnormal mammogram, unspecified Mammographic microcalcification Encounter for long-term (current) use of other medications documented in this encounter Care Teams Technical Manager [employer] Relationship Specialty Start Date End Date Lucrecia Candelario MD PCP - General 08/24/08 documented as of this encounter
--- OUTSIDE RECORDS SUMMARY | 2025-01-21 17:12 | XMS_ITS | Clinical Summary ---
Author Organization [facility] Address [address] [place] [address] Care Team Providers Care Scow Derrick Operator Name Role Phone Jayjay Toth DO Primary Care Provider [phone] Social History Tobacco Use Types Packs/Day Years Used Date Smoking Tobacco: Never Assessed Comments Unknown Sex and Gender Information Value Date Recorded Sex Assigned at Not on file Legal Sex Female 6:45 PM CDT Gender Identity Not on file Sexual Orientation Not on file Plan of Treatment Health Maintenance Due Date Last Done Comments Colorectal Cancer Screening Colonoscopy (10 Years) 1957 Hepatitis C 1975 Mammogram Screening 1997 Pneumococcal Vaccine: 50+ Years (1 of 1 - PCV) 2007 Dexa Scan (General) 2022 COVID-19 Vaccine (3 - 2023-2 5 season) 2024 11/02/2020, 10/11/2020 DTaP, Tdap and Td Vaccines ( 2 - Td or Tdap) 03/07/2028 03/07/2018 RSV Immunization or 60+ Years (1 - 1-dose 75+ series) 2032 Zoster Vaccines Completed 07/11/2019, 05/06/2019 Meningococcal B Vaccine Aged Out No l onger eligible based on patient's age to complete this topic Meningococcal Vaccine Aged Out No kanu alyssa eligible based on patient's age to complete this topic RSV Immunizations Under 20 Months Aged Out No longer eligible b ased on patient's age to complete this topic Insurance AETNA AETNA Care Teams Scow Derrick Operator Relationship Specialty Start Date End Date Jayjay Toth DO [address] [phone] PCP - General INTERNAL MEDICINE 12/06/20
--- OUTSIDE RECORDS SUMMARY | 2025-01-21 17:12 | XMS_ITS | Encounter Summary ---
Author Organization [facility] Address [address] [facility] [facility] [place] [address] Care Team Providers Care Adjunct Writing Instructor Name Role Phone Luiz Choudhury MD Unavailable [phone] Ward Antonio MD Primary Care Provider [phone] Encounter Details Date Type Department Care Team (Late st Contact Info) Description 05/20/2024 Lab Requisition [facility] Physician [facility] - DermPath Lab [address] [facility], [place] [address] Christen Rodríguez MD [address] [facility] [address]L [place] [address] Social History Tobacco Use Types Packs/Day Years Used Date Smoking Tobacco: Never Assessed Comments Unknown Sex and Gender Information Value Date Recorded Sex Assigned at Not on file Legal Sex Female 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 Gender Identity Not on file Sexual Orientation Not on file documented as of this encounter Plan of Treatment Not on file documented as of this encounter Procedures Procedure Name Priority Date/Time Associated Diagnosis Comments DERMATOPATHOLOGY Routine 05/20/2024 2:01 PM [facility] [employer] RECEIVING documented in this encounter Results * DERMATOPATHOLOGY (05/20/2024 2:01 PM [facility] [employer] RECEIVING) Case Report Dermatopathology Report Case: [id number] Authorizing Provider: Christen Rodríguez MD Collected: 05/20/2024 02:01 PM Ordering Location: [facility] - Received: 05/21/2024 01:22 PM DermPath Lab Pathologist: Milena Virk MD Specimens: A) - Skin, left neck B) - Skin, right upper arm 4 12:17 PM [facility] DERMATOPATHOLOGY LABORATORY Final Diagnosis Specimen A. SKIN, left neck: BENIGN VERRUCOUS KERATOSIS, INFLAMED (L82.1) Specimen B. SKIN, right upper arm: BENIGN VERRUCOUS KERATOSIS, INFLAMED (L82.1) 4 12:17 PM [facility] DERMATOPATHOLOGY [facility]ORAT[facility] at 1217 [facility] Clinical History Ozora papule, SCC vs SK 4 12:17 PM [facility] DERMATOP[facility] Gross Description Specimen A: Received is one formalin filled container labeled with the patient's name and designated left neck. The specimen consists of a shave biopsy measuring 7x6x2 mm. Jar 0. Specimen B: Received is one formalin filled container labeled with the patient's name and designated right upper arm. The specimen consists of a shave biopsy measuring 8x72 mm. Jar 0. 4 12:17 PM [facility] DERMATOPATHOLOGY [facility]OR[facility] Microscopic Description Specimen A. SKIN, left neck: Sections show hyperkeratosis, papillomatosis, hypergranulosis, and acanthosis. Inflammatory cells are present within the dermis. These histological findings can be seen in a verruca vulgaris or a seborrheic keratosis. Specimen B. SKIN, right upper arm: Sections show hyperkeratosis, papillomatosis, hypergranulosis, and acanthosis. Inflammatory cells are present within the dermis. These histological findings can be seen in a verruca vulgaris or a seborrheic keratosis. 4 12:17 PM [facility] DERMATOPATHOLOGY [facility]ORAT[facility] Disclaimer An external and internal positive and negative controls are appropriate for the histochemical, immunohistochemical and immunofluorescence stain(s) in this case (if any), except where stated explicitly. The performance characteristics of the stain(s) cited in this report were developed and its performance characteristic determined by the Dermatopathology Laboratory at [facility], directed by Dr. Sirena Brady. These tests need not be, and therefore are not, approved by the [place] Food and Drug Administration. The tests are used for clinical purposes. Billing Codes Specimen Charges Stain Charges 95972 40803 1 1 4 12:17 PM [facility] DERMATOPATHOLOGY [facility]ORAT[facility] Embedded Images 4 12:17 PM [facility] D[facility]MAT[facility]ORY Pathology/Cytology TISSUE SPECIMEN FROM SKIN / Unknown 05/20/2024 2:01 PM [facility] 05/21/2024 1:22 PM [facility] Miscellaneous samples (specimen) TISSUE SPECIMEN FROM SKIN / Unknown 05/20/2024 2:01 PM [facility] 05/21/2024 1:22 PM [facility] us Christen Rodríguez MD LAB - PATHOLOGY/CYTOLOGY ORD ERABLES Final Result DERMATOPATHOLOGY LABORATORY [facility] - Department of Dermatology [facility] Medicine [address] [place] [address], [address] Floor [address] [phone] documented in this encounter Visit Diagnoses Not on filedocumented in this encounter Care Teams Adjunct Writing Instructor Relationship Specialty Start Date End Date Ward Antonio MD [address] [place] [phone] PCP - General Internal Medicine 10/09/11 Luiz Choudhury MD Orthopedic Surgery 10/09/11 documented as of this encounter
--- OUTSIDE RECORDS SUMMARY | 2025-01-21 17:12 | XMS_ITS | Clinical Summary ---
Author Organization [facility] Address [address] [facility] [place] [address] Care Team Providers Care Class A Truck Driver Name Role Phone No, Physician Primary Care Provider [phone] Allergies Active Allergy Reactions Criticality Noted Date [...] flutter 12/02/2019 Palpitations 09/27/2016 Supraventricular tachycardia 06/30/2016 Encounters Date Type Department Care Team Description 12/17/2024 2:40 PM CDT Office Visit [address] Medical Office Building [address] [place] [address] Kary Armando MD Age-related osteoporosis without current pathological fracture (Primary Dx) 12/17/2024 2:10 PM CDT Clinical Support [address] [place] [address] Age-related osteoporosis without current pathological fracture 12/17/[address] [place] [id number] Kary Armando MD from Last 3 Months Surgical History Surgery Date Site/Laterality Comments FOOT SURGERY 05/25/2018 - 06/24/2018 Right Medical History Medical History Date Comments Hx Other Medical Chronic pain; C omments: [facility] 09/04/2016 - Anxiety disorder Anxiety Hx Other Medical Headache; Comme nts: [facility] 09/04/2016 - Hx Other Medical Arthritis; Comm ents: [facility] 09/04/2016 - Hx Other Medical Palpitation; Co mments: [facility] 09/04/2016 - Family History Medical History Relation Name Comments Cancer Brother 1 Family history of cancer - (Added by TW Conv) Pancreatic cancer Brother 1 Diabetes Brother 2 Family history of diabetes mellitus - (Added by TW Conv) Hypertension Brother 3 Family history of hypertension - (Added by TW Conv) Cancer Brother 4 Family history of cancer - (Added by TW Conv) Diabetes Brother 5 Family history of diabetes mellitus - (Added by TW Conv) Hypertension Brother 6 Family history of hypertension - (Added by TW Conv) Cancer Father Family history of cancer - (Added by TW Conv)/Family history of cancer - (Added by TW Conv) Diabetes Father Family history of diabetes mellitus - (Added by TW Conv)/Family history of diabetes mellitus - (Added by TW Conv) Hypertension Father Family history of hypertension - (Added by TW Conv)/Family history of hypertension - (Added by TW Conv) Stroke Father Family history of stroke - (Added by TW Conv)/Family history of stroke - (Added by TW Conv) Broken bones Neg Hx Hip fracture Neg Hx Kyphosis Neg Hx Osteoporosis Neg Hx Scoliosis Neg Hx Relation Name Status Comments Brother 1 Brother 2 Brother 3 Brother 4 Brother 5 Brother 6 Father Social History Tobacco Use Types Packs/Day Years Used Date Smoking Tobacco: Never Smokeless Tobacco: Never Alcohol Use Standard Drinks/Week Comments No 0 (1 standard drink = 0.6 oz pur e alcohol) Hunger Vital Sign Answer Date Recorded Within the past 12 months, y ou worried that your food would run out before you got the money to buy more. Never true 02/18/20 24 Within the past 12 months, t he [...] on file Legal Sex Female 12:58 PM HIRED HELP Gender Identity Female 03/15/2020 10:12 AM CDT Sexual Orientation Not on file Obstetrics History Last Filed Vital Signs Vital Sign Reading [...] 12/17/2024 2:22 PM CDT Plan of Treatment Health Maintenance Due Date Last Done Comments Colon Cancer Screening-Colonoscopy 1957 Depression Screening 1957 Fall Risk Assessment 1957 Hepatitis C Screening 1957 Hepatitis B Screening 1975 Pneumococcal vaccine 65+ (1 of 1 - PCV) 2007 Zoster Vaccine (1 of 2) 2007 Breast Cancer Screening-Mammogram 04/29/2016 015, 05/28/2013 Well Visit 65+ 2022 Influenza Vaccine (#1) 2025 04/18/2019 Osteoporosis Screening-Bone Density Scan 12/17/2026 12/17/2024, 12/11/2023, 12/06/2021, Additional history exists DTaP/Tdap/Td Vaccine (2 - Td or Tdap) 03/07/2028 03/07/2018 Procedures Procedure Name Priority Date/Time Associated Diagnosis [...] Bone mineral density was performed on a [employer] Discovery Densitometer. Based on machine cross-calibration and [...] by the International Society of Clinical Densitometry. [id number] Kary Armando MD IMG DXA PROCEDURES Final Resu lt from Last 3 Months Insurance A[employer] MEDICARE [employer] [id number] [place], [place] [id number] [employer] [facility] AETNA MEDIC[facility] Care Teams Class A Truck Driver Relationship Specialty Start Date End Date No, Physician PCP - General 11/26/18
--- OUTSIDE RECORDS SUMMARY | 2025-01-21 17:12 | XMS_ITS | Continuity of Care Document ---
Author Organization [facility] Address [address] [place] [address] Phone Care Team Providers Care Business Operations Manager Name Role Phone Noel Ron Unavailable Unavailable Advance Directives Directive Yes / No Effective Date File Name No Information Encounters Encounter Description Practice Location Reason(s) For Visit Diagnoses Date Provider Providers Copied on Encounter [facility], [address] [place] [address], [facility], tel:[phone] *[facility] No Information Asaf Cohen. [address] [place] [address], [facility], . tel:[phone] Family History Family Member Type Diagnosis Age At Onset No Information Payers Payer name Insurance type Covered democrat ID Authoriza tion(s) No Information Social History [...]
--- OUTSIDE RECORDS SUMMARY | 2025-01-21 17:12 | XMS_ITS | Encounter Summary ---
Author Organization [facility] Address [address] [facility] [place] [address] Care Team Providers Care Clinical Radiologist Name Role Phone Luiz Choudhury MD Unavailable [phone] Ward Antonio MD Primary Care Provider [phone] Encounter Details Date Type Department Care Team (Late st Contact Info) Description 12/17/2023 Lab Requisition [facility] Physician [facility] - DermPath Lab [address] [facility], [place] [address] Christen Rodríguez MD [address] [facility] [address] [place] [address] Social History Tobacco Use Types Packs/Day Years Used Date Smoking Tobacco: Never Assessed Comments Unknown Sex and Gender Information Value Date Recorded Sex Assigned at Not on file 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 Gender Identity Not on file Sexual Orientation Not on file documented as of this encounter Plan of Treatment Not on file documented as of this encounter Procedures Procedure Name Priority Date/Time Associated Diagnosis Comments DERMATOPATHOLOGY Routine 12/17/2023 2:05 PM CDT documented in this encounter Results * DERMATOPATHOLOGY (12/17/2023 2:05 PM CDT) Case Report Dermatopathology Report Case: [id number] Authorizing Provider: Christen Rodríguez MD Collected: 12/17/2023 02:05 PM Ordering Location: [facility] - Received: 12/18/2023 01:01 PM DermPath Lab Pathologist: Milena Virk MD Specimens: A) - Skin, left forearm B) - Skin, mid low back 4:58 PM CDT DERMATOPATHOLOGY LABORATORY Final Diagnosis Specimen A. SKIN, left forearm: ACTINIC KERATOSIS, LICHENOID (L57.0) Specimen B. SKIN, mid low back: PERSISTENT (RECURRENT) NEVUS (D22.9) 4 4:58 PM CDT DERMATOPATHOLOGY LABORATORY at 1658 CDT Clinical History A: [place] papule BCC B: Irregular brown papule R/O MM 4:58 PM CDT DERMATOPATHOLOGY LABORATORY Gross Description Specimen A: Received is one formalin filled container labeled with the patient's name and designated left forearm. The specimen consists of a shave biopsy measuring 7x6x1 mm. Jar 0. Specimen B: Received is one formalin filled container labeled with the patient's name and designated mid low back. The specimen consists of a shave biopsy measuring 10x7x2 mm. Jar 0. 4 4:58 PM CDT DERMATOPATHOLOGY LABORATORY Microscopic Description Specimen A. SKIN, left forearm: There is focal parakeratosis. The lower half of the epidermis shows disorderly maturation of keratinocytes with nuclear pleomorphism. The dermis shows a band-like, chronic inflammatory infiltrate with occasional apoptotic keratinocytes and some basal vacuolar alteration. Specimen B. SKIN, mid low back: There is a lentiginous proliferation of nevus cells at the dermal-epidermal junction between focal nests. Within the dermis, there are nests of small, monomorphous melanocytes. Adjacent to this, there are fibroblasts and collagen bundles oriented parallel to the skin surface consistent with a dermal scar. MART-1/Melan-A immunohistochemical stain highlights the melanocytes as above. 4:58 PM CDT DERMATOPATHOLOGY LABORATORY Disclaimer An external and internal positive and negative controls are appropriate for the histochemical, immunohistochemical and immunofluorescence stain(s) in this case (if any), except where stated explicitly. The performance characteristics of the stain(s) cited in this report were developed and its performance characteristic determined by the Dermatopathology Laboratory at [facility], directed by Dr. Sirena Brady. These tests need not be, and therefore are not, approved by the [place] Food and Drug Administration. The tests are used for clinical purposes. Billing Codes Specimen Charges Stain Charges 78068 29405 1 1 77837 1 4 4:58 PM CDT DERMATOPATHOLOGY LABORATORY Embedded Images 4 4:58 PM CDT DERMATOPATHOLOGY LABORATORY Pathology/Cytology TISSUE SPECIMEN FROM SKIN / Unknown 12/17/2023 2:05 PM CDT 12/18/2023 1:01 PM CDT Miscellaneous samples (specimen) TISSUE SPECIMEN FROM SKIN / Unknown 12/17/2023 2:05 PM CDT 12/18/2023 1:01 PM CDT Christen Rodríguez MD LAB - PATHOLOGY/CYTOLOGY ORD ERABLES Final Result DERMATOPATHOLOGY LABORATORY [facility] - Department of Dermatology [facility] Medicine [address] [place] [address], [address] [phone] documented in this encounter Visit Diagnoses Not on filedocumented in this encounter Care Teams Clinical Radiologist Relationship Specialty Start Date End Date Ward Antonio MD [address] [place] [phone] PCP - General Internal Medicine 10/09/11 Luiz Choudhury MD Orthopedic Surgery 10/09/11 documented as of this encounter
--- OUTSIDE RECORDS SUMMARY | 2025-01-21 17:12 | XMS_ITS | Clinical Summary ---
Author Organization [facility] Address [address] [place] [address] Phone Care Team Providers Care Rail Gang Supervisor Name Role Phone Ward Antonio MD Primary Care Provider + Allergies Active Allergy Reactions Criticality Noted Date Comments Penicillins Hives,Rash High 05/17/2015 Medications cholecalciferol, Vitamin D3, (VITAMIN D3) 1,000 unit Capsule Take by mouth daily. Active multivitamin (DAILY-SHON) tablet Take 1 Tablet by mouth daily. Active oxyCODONE-acetam inophen (PERCOCET) 5-325 mg tablet Take 1 Tablet by mouth every 6 hours as needed for Pain, Moderate. Max Daily Amount: 4 Tablet 20 Tablet 0 06/09/2015 Active Active Problems Patient Care Coordination No te Formatting of this note migh t be different from the original. Primary Care: Ward Antonio MD Referring Provider: Ramone Scott MD [address] [address] Other: Problem Noted Date Diagnosed Date Abnormal mammogram 05/11/2015 Breast mass, left 05/11/2015 Family History Medical History Relation Name Comments Cancer Brother 3 3 brthers, 1 wi th testicullar cancer and bladder, 1 other had kidney cancer Heart Disease Father Pancreatic Cancer Father Relation Name Status Comments Brother 3 Alive Father Mother Social History Tobacco Use Types Packs/Day Years Used Date Smoking Tobacco: Never Smokeless Tobacco: Never Alcohol Use Standard Drinks/Week Comments Yes 0 (1 standard drink = 0.6 oz pur e alcohol) rarley Comments No Sex and Gender Information Value Date Recorded Sex Assigned at Not on file Legal Sex Female 5:37 AM PURCHASING/RECEIVING Gender Identity Not on file Sexual Orientation Not on file Last Filed Vital Signs Vital Sign Reading Time Taken Comments Blood Pressure 129/78 06/09/2015 12:28 PM PURCHASING/RECEIVING Pulse 69 06/09/2015 9:00 AM PURCHASING/RECEIVING Temperature 36.3 C (97.4 F) 06/09/2015 11:42 AM PURCHASING/RECEIVING Respiratory Rate 17 06/09/2015 12:28 PM PURCHASING/RECEIVING Oxygen Saturation 98% 06/09/2015 12:28 PM PURCHASING/RECEIVING Inhaled Oxygen Concentration - - Weight 68 kg (150 lb) 06/09/2015 9:00 AM PURCHASING/RECEIVING Height 170.2 cm (5' 7) 06/09/2015 9:00 AM PURCHASING/RECEIVING Body Mass Index 23.49 06/09/2015 9:00 AM PURCHASING/RECEIVING Plan of Treatment Health Maintenance Due Date Last Done Comments COLORECTAL SCREENING 2002 Colorectal Cancer Screening 2002 FIT-DNA Q 3 years 2002 FIT/FOBT Q 1 year 2002 Flex Sig/CT Colonography Q 5 years 2002 PNEUMOCOCCAL VACCINE 50+ YEA RS (1 of 1 - PCV) 2007 ZOSTER VACCINE (1 of 2) 2007 BREAST CANCER SCREENING 05/06/2016 05/06/20 15, 05/06/2015, 04/29/2015, Additional history exists INFLUENZA VACCINE (#1) 2025 OSTEOPOROSIS SCREENING 12/06/2026 2, 01/28/2020, 11/26/2018 DTAP/TDAP/TD VACCINES (2 - T d or Tdap) 03/07/2028 03/07/2018 RSV VACCINE (60+ or ) (1 - 1-dose 75+ series) 2032 Procedures Procedure Name Priority Date/Time Associated Diagnosis Comments MAMMO BILAT DIAGNOSTIC Routine 05/06/2015 from Last 3 Months or Most Recently Relevant to Health Maintenance Results * MAMMO BILAT DIAGNOSTIC (05/06/2015) Anatomical Region Laterality Modality Breast Bilateral Other us Ramone Fuchs MD MAMMO ORDERABLES Sailaja l Result from Last 3 Months or Most Recently Relevant to Health Maintenance Insurance [employer] CHOICE POS II Advance Directives For more information, please contact: [phone] * Full Code (Latest Code Status on File) Date Activated Date Inactivated Comments 06/09/2015 8:57 AM 06/09/2015 2:45 PM Care Teams Rail Gang Supervisor Relationship Specialty Start Date End Date Ward Antonio MD PCP - General 08/24/08
[2025-01-21 17:17] VITALS: BP 142/83; PULSE 60; RESP 16; TEMP 36.4; O2SAT 99
--- NOTE | 2025-01-21 17:49 | ED.NECK ---
HPI - Neck Pain/Injury General Chief Complaint: Neck Pain/Injury Stated Complaint: Neck Pain Time Seen by Provider: 01/21/25 17:55 Source: patient Mode of arrival: ambulatory Limitations: no limitations History of Present Illness HPI Narrative: 69-year-old female presented for complaint of left neck pain. Onset over 1 week. Pain is worsening the last 4 days. Denies known injury. Pain is worse when turning head side to side or with lying down. Denies decreased range of motion, numbness, tingling, or weakness to the arms. Patient has taken left over oxycodone and Ambien twice since onset, took ibuprofen today. Denies improvement. Says she can not sleep due to the pain. She saw a chiropractor yesterday, reported pain was worse last night. Scheduled with chiropractor tomorrow. Related Data Home Medications ?Medication ?Instructions ?Recorded ?Confirmed ?Last Taken ?Type diltiazem HCl 180 mg 180 mg PO DAILY 05/15/19 04/09/24 Unknown History capsule,extended release 24 hr (Cardizem CD) glucosamine sulfate 500 mg capsule 500 mg PO BID 05/15/19 04/09/24 Unknown History calcium-vit D3-ferrous fumarate tablet PO 10/20/19 04/09/24 Unknown History 600 mg-125 unit-18 mg tablet magnesium oxide 500 mg capsule 500 mg PO DAILY 10/20/19 04/09/24 Unknown History reclast infusion .Route 02/12/24 04/09/24 Unknown History Allergies Allergy/AdvReac Type Severity Reaction Status Date / Time Penicillins Allergy Unknown Unknown Verified 04/09/24 14:21 Review of Systems Review of Systems: CONSTITUTIONAL: Denies body aches, fever, chills, or sweats. ENT: Denies rhinorrhea, congestion, sore throat, or otalgia. CARDIOVASCULAR: Denies chest pain, palpitations, or edema. RESPIRATORY: Denies cough or dyspnea. GASTROINTESTINAL: Denies abdominal pain, nausea, vomiting, or diarrhea. SKIN: Denies rash MUSCULOSKELETAL: reports neck pain Denies back pain, joint pain, or myalgia. NEUROLOGIC: Denies headache, numbness, tingling, or weakness. PSYCH: Denies depression or anxiety. All systems reviewed & are unremarkable except as noted in HPI and below PMFSH Past Medical History Medical History Afib Abnormality of heart beat Claustrophobia Patellofemoral arthritis of right knee Tendinitis of right rotator cuff Supraventricular tachycardia, nonsustained Vitamin D deficiency Skin cancer, basal cell Anxiety Arthritis GERD (gastroesophageal reflux disease) Hyperlipidemia Hypertension Bone spur of right foot Surgical History Surgical History History of arthroscopy of right knee History of section (~1986) Status post debridement of bone spur (~2018) Previous section (~1981) History of back surgery (~1997) Hx of knee surgery (~1982) History of surgical removal of lesion Family History Family History Mother Family history of bipolar disorder Father Family history of pancreatic cancer Patient's father is Sibling Family history of malignant neoplasm of kidney Other Cerebrovascular accident Depression Diabetes mellitus Family history of arthritis Family history of heart disease in male family member before age 55 Heart disease Hypertension Social History Social History Smoking status: Never smoker Alcohol intake: never Do You Feel Safe in your Home?: Yes Lack of Transportation: No Lack of Food: Never True Current Housing: I Have Housing Concerned About Future Housing: No Difficulty Paying Gas/Electric Bills: No Difficulty Paying for Meds: No Currently Unemployed: No Education: Associate Degree Difficulty w/ Childcare or Family Care: No Comments At time of signature, I have reviewed and agree with nursing past medical, surgical, social and family history unless otherwise noted. Please see nursing chart for further information. There is no relevant family history pertinent to the presenting complaint Exam Narrative: GENERAL: Well-appearing, and in no acute distress. HEAD: Normocephalic, atraumatic. EYES: EOMI. No redness or drainage. Conjunctivae normal. ENT: Mucous membranes pink and moist. No rhinorrhea. TMs normal bilaterally. Throat normal. Uvula midline. NECK: Decreased AROM with left and right rotation due to pain, able to tolerate flexion/extension, No VPT or paraspinal tenderness. Supple. No lymphadenopathy. CHEST: Clear to auscultation. HEART: Regular rate and rhythm. EXTREMITIES: Normal range of motion to BUEs. No edema. SKIN: Warm, dry, no rash. Capillary refill normal. Normal skin turgor. NEURO: No focal deficits. Alert and oriented x3. Gait steady. PSYCH: Normal affect. Course Course Emergency Course: Patient is aware of diagnosis, understands and agrees to treatment plan. Anticipatory guidance given. Patient agrees to follow-up as directed and is aware of reasons to seek care at the emergency department. Portions of this record may have been created with voice recognition software Level of Care: Express Care Visit Vital Signs Vital signs: Vital Signs Temperature 97.6 F 01/21/25 17:17 Pulse Rate 60 01/21/25 17:17 Respiratory Rate 16 01/21/25 17:17 Blood Pressure 142/83 H 01/21/25 17:17 Pulse Oximetry 99 01/21/25 17:17 Oxygen Delivery Room Air 01/21/25 17:17 Temperature 97.6 F 01/21/25 17:17 Pulse Rate 60 01/21/25 17:17 Respiratory Rate 16 01/21/25 17:17 Blood Pressure 142/83 H 01/21/25 17:17 Pulse Oximetry 99 01/21/25 17:17 Oxygen Delivery Room Air 01/21/25 17:17 MDM - Neck Pain/Injury MDM Narrative Medical decision making narrative: Discussed physical exam findings and xray. Advised close f/u with pcp for further imaging. Rx steroid and muscle relaxant. Advised supportive measures and signs/symptoms to go to the ER. Pt is appropriate for outpt treatment and f/u. Differential Diagnosis Differential diagnosis: Likely disc disorder of cervical region, whiplash injury to neck, closed subluxation of cervical spine, fracture of cervical spine without lesion of spinal cord, cervical radiculopathy, vertebral artery dissection, torticollis, cervical spondylosis and strain of neck muscle Imaging Data Radiologist's impression: Patient: Tammy Farah : 1955 MR#: [id number] Age: 69 Acct:[id number] Loc: [facility] ADM Date: 01/21/25Attending Dr: EXAM: [id number] DATE: 01/21/2025 17:47 HISTORY: pain . COMPARISON: None available. FINDINGS: Decreased mineralization. Craniocervical association and atlantoaxial joint are aligned. Mild degenerative change at the atlantodental interval. No prevertebral soft tissue swelling. Mild reversal of the cervical lordosis centered at C4-5. Trace anterolisthesis at C4-5. Trace retrolisthesis at C5-6. Vertebral body heights are maintained. Normal disc spaces. Mild disc space narrowing at C5-6. Mild-moderate facet hypertrophy and sclerosis in the lower cervical spine. IMPRESSION: Osteopenia. No definite fracture or traumatic malalignment detected in the cervical spine. Minimal grade 1 listheses at C4-5 and C5-6, presumably on a degenerative basis. If pain persists or clinical suspicion of injury is high, recommend CT or MRI of the cervical spine for further evaluation Discharge Plan Discharge Clinical Impression: Neck pain Patient Disposition: Home Condition: Stable Instructions: Antibiotic Form, Acute Neck Pain (ED) Additional Instructions: Rest. Avoid pushing, pulling, lifting or anything that worsens the symptoms Tylenol 1000mg every 8 hours as needed Take the steroid as directed Cyclobenzaprine (Flexeril) is a muscle relaxer. Take it as directed. It can cause drowsiness so do not drive or operate machinery until you know how it makes you feel. Alternate ice/heat to the site. Lidocaine or salon pas pain patch or use pain cream like icy/hot or biofreeze. Follow up with your primary care provider for further evaluation and management, call tomorrow to schedule the appointment Go to the ER for worsening symptoms or concerns Patient Language: [place] Islander Prescriptions: New cyclobenzaprine 10 mg tablet 10 mg PO TID PRN (Reason: muscle spasm) Qty: 12 0RF prednisone 20 mg tablet 20 mg PO DAILY Qty: 18 0RF Rx Instructions: take 3 tablets daily for 3 days, then 2 tablets daily for 3 days then 1 tablet daily for 3 days No Action magnesium oxide 500 mg capsule 500 mg PO DAILY [id number] fumarate 600-125-18 mg-unit-mg tablet PO reclast infusion .Route Rx Instructions: Once a year diltiazem HCl [Cardizem CD] 180 mg capsule,extended release 24hr 180 mg PO DAILY aspirin [Aspir-Low] 81 mg tablet,delayed release (DR/EC) 81 mg PO DAILY Qty: 30 0RF multivitamin Tablet 1 tablet PO DAILY Qty: 30 0RF glucosamine sulfate 500 mg capsule 500 mg PO BID zolpidem [Ambien] 10 mg tablet 10 mg PO QHS Qty: 10 0RF Follow-up/Referrals: Edmundo Esquivel MD [Primary Care Provider] - Time of Disposition: 18:24
== END 2025-01-21 18:32 | disposition home or self-care (01) ==
PROVIDERS: Emergency Provider Nurse Practitioner Family; PCP Family Medicine
DX: M54.2 Cervicalgia (principal); I48.91 Unspecified atrial fibrillation; I10 Essential (primary) hypertension; E78.5 Hyperlipidemia, unspecified; K21.9 Gastro-esophageal reflux disease without esophagitis; M19.90 Unspecified osteoarthritis, unspecified site; R00.9 Unspecified abnormalities of heart beat; Z85.828 Personal history of other malignant neoplasm of skin; M17.11 Unilateral primary osteoarthritis, right knee; Z79.82 Long term (current) use of aspirin
CPT/HCPCS: 72040; 99213; G0463

== ENCOUNTER 2025-05-25 11:59 | Outpatient (CLI) | payer MEDICARE, OTHER, SELFPAY ==
--- NOTE | ~2025-05-25 | MMUS_ITS ---
EXAMINATION: US breast RT limited, MM diagnostic tristen BI w ko HISTORY: Follow-up. TECHNIQUE: Craniocaudal and mediolateral oblique 3-D tomosynthesis images were obtained and synthetic 2-D images were generated. CAD analysis was submitted and interpreted. Grayscale sonography over the area(s) of interest with color Doppler if there is a finding. COMPARISON: Studies dating back to April 2024. BREAST PARENCHYMAL COMPOSITION: Dense: The breasts are heterogeneously dense. MAMMOGRAM FINDINGS: No suspicious masses are seen. There are no suspicious calcifications. No unexplained architectural distortion is seen. There are no skin or nipple abnormalities identified. There is no adenopathy seen on the images submitted. ULTRASOUND FINDINGS: Sonography through the 4:00 position on the right demonstrates a circumscribed, ovoid, homogeneous, hypoechoic nodule/mass with a maximum dimension of 4 mm, decreased in size from 5 mm. It has a parallel orientation. At 11:00, there is a similar appearing structure with a maximum dimension of 4 mm, unchanged. IMPRESSION: Circumscribed benign-appearing nodules as described. No mammographic evidence to suggest malignancy is seen. The patient may return to screening mammography as per ACR guidelines. BI-RADS 2 - Benign. Reviewed, dictated and finalized at location B. ERCIAL COUNSEL IMPRESSION: Circumscribed benign-appearing nodules as described. No mammographic evidence t o suggest malignancy is seen. The patient may return to screening mammography a s per ACR guidelines. BI-RADS 2 - Benign.
--- OUTSIDE RECORDS SUMMARY | 2025-05-25 13:23 | XMS_ITS | Clinical Summary ---
Author Organization [facility] [place] Address [address] [place] [address] Phone Care Team Providers Care Casual Shoe Inspector Name Role Phone Ward Antonio MD Primary [...] MD Referring Provider: Ramone Scott MD [address] [facility] [address] [place] [id number] Other: Problem Noted Date Diagnosed Date Abnormal [...] on file Legal Sex Female 5:37 AM LARD TUB WASHER Gender Identity Not on file Sexual Orientation Not on file Last Filed Vital Signs Vital Sign Reading Time Taken Comments Blood Pressure 129/78 06/09/2015 12:28 PM LARD TUB WASHER Pulse 69 06/09/2015 9:00 AM LARD TUB WASHER Temperature 36.3 C (97.4 F) 06/09/2015 11:42 AM LARD TUB WASHER Respiratory Rate 17 06/09/2015 12:28 PM LARD TUB WASHER Oxygen Saturation 98% 06/09/2015 12:28 PM LARD TUB WASHER Inhaled Oxygen Concentration - - Weight 68 kg (150 lb) 06/09/2015 9:00 AM LARD TUB WASHER Height 170.2 cm (5' 7) 06/09/2015 9:00 AM LARD TUB WASHER Body Mass Index 23.49 06/09/2015 9:00 AM LARD TUB WASHER Plan of Treatment Health Maintenance Due Date [...] Anatomical Region Laterality Modality Breast Bilateral Other Ramone Fuchs MD MAMMO ORDERABLES Sailaja latha Result from Last 3 Months or Most Recently Relevant to Health Maintenance Insurance [employer] CHOICE POS II Advance Directives For more information, please contact: [phone] * Full Code (Latest Code Status on File) Date Activated Date Inactivated Comments 06/09/2015 8:57 AM 06/09/2015 2:45 PM Care Teams Casual Shoe Inspector Relationship Specialty Start Date End Date Ward Antonio MD PCP - General 08/24/08
--- OUTSIDE RECORDS SUMMARY | 2025-05-25 13:23 | XMS_ITS | Clinical Summary ---
Author Organization [facility] Address [address] [place] [address] Care Team Providers Care Farm Instructor Name Role Phone Luiz Choudhury MD Unavailable [phone] Ward Antonio MD Primary Care Provider [phone] Source Comments [facility],non-owned Affiliates and Associated Physician Practices is amultiple site organization consisting of ambulatory clinics and hospital sitesin [place], [place], [place] and [place]. This disclosure is being madepursuant to the Care Everywhere program and may not contain all information available regarding this patient. Last updated 18.[facility] Allergies Active Allergy Reactions Criticality Noted Date [...] on file Legal Sex Female 1:15 PM COMMUNITY OUTREACH DIRECTOR Gender Identity Not on file Sexual Orientation [...] 2007 ZOSTER VACCINE (1 of 2) 2007 DEPRESSION SCREENING 06/25/2024 MEDICARE AWV CALENDAR YEAR 2024 COVID-19 VACCINE (1 - 2024-2 6 season) 2025 INFLUENZA VACCINE (#1) 2025 DTAP/TDAP/TD VACCINES (2 [...] AETNA AETNA MEDICARE ADV AETNA Care Teams Farm Instructor Relationship Specialty Start Date End Date Ward Antonio MD [address] [place] [address] PCP - General Internal Medicine 10/09/11 Luiz Choudhury MD Orthopedic Surgery 10/09/11
--- OUTSIDE RECORDS SUMMARY | 2025-05-25 13:23 | XMS_ITS | Clinical Summary ---
Author Organization [facility] Address [facility] [place] [address] Care Team Providers Care Hydroblaster Name Role Phone Edmundo Esquivel MD Primary Care Provider [phone] Social History Tobacco Use Types Packs/Day Years Used Date Smoking Tobacco: Never Assessed Comments Unknown Sex and Gender Information Value Date Recorded Sex Assigned at Not on file Legal Sex Female 6:45 PM CDT Gender Identity Female 05/20/2025 2:01 PM LIVING NURSE Sexual Orientation Straight 05/20/2025 2: 01 PM LIVING NURSE Plan of Treatment Upcoming Encounters Date Type Department Care Team (Late st Contact Info) Description 05/27/2025 10:30 AM LIVING NURSE [facility]ment [facility] [address], [place] [id number] Edmundo Esquivel MD [address] [place] [address] Health Maintenance Due Date Last Done Comments Colorectal Cancer Screening Colonoscopy (10 Years) 1955 Hepatitis C 1975 Mammogram Screening 1997 Pneumococcal Vaccine: 50+ Years (1 of 1 - PCV) 2007 Annual Medicare Wellness Visit 2022 Dexa Scan (General) 2022 COVID-19 Vaccine (3 - 2024-2 6 season) 2025 11/02/2020, 10/11/2020 Influenza Adult (#1) 2025 DTaP, Tdap and Td Vaccines ( 2 - Td or Tdap) 03/07/2028 03/07/2018 RSV Immunization or 60+ Years (1 - 1-dose 75+ series) 2032 Zoster Vaccines Completed 07/11/2019, 05/06/2019 Hepatitis A Vaccines Aged Out No long er eligible based on patient's age to complete this topic Meningococcal B Vaccine Aged Out No l onger eligible based on patient's age to complete this topic Meningococcal Vaccine Aged Out No kanu alyssa eligible based on patient's age to complete this topic RSV Immunizations Under 20 Months Aged Out No longer eligible b ased on patient's age to complete this topic Insurance [facility] AETNA MEDICARE [facility] Care Teams Hydroblaster Relationship Specialty Start Date End Date Edmundo Esquivel MD [address] [id number] PCP - General 05/20/25
--- OUTSIDE RECORDS SUMMARY | 2025-05-25 13:23 | XMS_ITS | Encounter Summary ---
Author Organization [facility] Address [address] [facility] [place] [address] Care Team Providers Care Buffer Automatic Name Role Phone Luiz Choudhury MD Unavailable [phone] Ward Antonio MD Primary Care Provider [phone] Encounter Details Date Type Department Care Team (Late st Contact Info) Description 05/20/2024 Lab Requisition [facility] Physician [facility] - DermPath Lab [address] [facility] [address] [address] [place] [address] Christen Rodríguez MD [address] [facility] [address] [place] [address] Social History Tobacco Use Types Packs/Day Years Used Date Smoking Tobacco: Never Assessed Comments Unknown Sex and Gender Information Value Date Recorded Sex Assigned at Not on file Legal Sex Female 1:15 PM BREEDING TECHNICIAN Gender Identity Not on file Sexual Orientation Not on file documented as of this encounter Plan of Treatment Not on file documented as of this encounter Procedures Procedure Name Priority Date/Time Associated Diagnosis Comments DERMATOPATHOLOGY Routine 05/20/2024 2:01 PM BREEDING TECHNICIAN documented in this encounter Results * DERMATOPATHOLOGY (05/20/2024 2:01 PM BREEDING TECHNICIAN) Case Report Dermatopathology Report Case: [id number] Authorizing Provider: Christen Rodríguez MD Collected: 05/20/2024 02:01 PM Ordering Location: [facility] - Received: 05/21/2024 01:22 PM DermPath Lab Pathologist: Milena Virk MD Specimens: A) - Skin, left neck B) - Skin, right upper arm 4 12:17 PM [facility] DERMATOPATHOLOGY LABORATORY Final Diagnosis Specimen A. SKIN, left neck: BENIGN VERRUCOUS KERATOSIS, INFLAMED (L82.1) Specimen B. SKIN, right upper arm: BENIGN VERRUCOUS KERATOSIS, INFLAMED (L82.1) 4 12:17 PM [facility] DERMATOPATHOLOGY LABORATORY at 1217 BREEDING TECHNICIAN Clinical History [place] papule, SCC vs SK 4 12:17 PM [facility] DERMATOPATHOLOGY LABORATORY Gross Description Specimen A: [...] 8x72 mm. Jar 0. 4 12:17 PM [facility] DERMATOPATHOLOGY [facility]ORATORY Microscopic Description Specimen A. [...] or a seborrheic keratosis. 4 12:17 PM [facility] DERMATOPATHOLOGY LABORATORY Disclaimer An external and internal positive and negative controls are appropriate for the histochemical, immunohistochemical and immunofluorescence stain(s) in this case (if any), except where stated explicitly. The performance characteristics of the stain(s) cited in this report were developed and its performance characteristic determined by the Dermatopathology Laboratory at [facility], directed by Dr. Sirena Brady. These tests need not be, and therefore are not, approved by the [place] Food and Drug Administration. The tests are used for clinical purposes. Billing Codes Specimen Charges Stain Charges 05785 33115 1 1 4 12:17 PM [facility] DERMATOPATHOLOGY LABORATORY Embedded Images 4 12:17 PM BREEDING TECHNICIAN DERMATOPATHOLOGY LABORATORY Pathology/Cytology TISSUE SPECIMEN FROM SKIN / Unknown 05/20/2024 2:01 PM BREEDING TECHNICIAN 05/21/2024 1:22 PM BREEDING TECHNICIAN Miscellaneous samples (specimen) TISSUE SPECIMEN FROM SKIN / Unknown 05/20/2024 2:01 PM BREEDING TECHNICIAN 05/21/2024 1:22 PM BREEDING TECHNICIAN us Christen Rodríguez MD LAB - PATHOLOGY/CYTOLOGY ORD ERABLES Final Result DERMATOPATHOLOGY LABORATORY [facility] - Department of Dermatology [facility] Medicine [address] [place] [address], [address] [phone] documented in this encounter Visit Diagnoses Not on filedocumented in this encounter Care Teams Buffer Automatic Relationship Specialty Start Date End Date Ward Antonio MD [address] [place] [phone] PCP - General Internal Medicine 10/09/11 Luiz Choudhury MD Orthopedic Surgery 10/09/11 documented as of this encounter
--- OUTSIDE RECORDS SUMMARY | 2025-05-25 13:23 | XMS_ITS | Encounter Summary ---
Author Organization [facility] Address [address] [place] [address] Care Team Providers Care Wood Veneer Taper Name Role Phone Ward Candelario MD Primary Care Provider + Encounter Details Date Type Department Care Team (Latest Contact Info) Description 03/02/2008 Outpatient Historical [facility] Alicia Barnes MD [address] [address] Marisa Nation MD [address] [facility] [place] [address] Abnormal Mammogram, Unspecified; Mammographic Microcalcification; Encounter for Long-Term (Current) Use of Other Medications Social History Tobacco Use Types Packs/Day Years Used Date Smoking Tobacco: Never Assessed Comments Unknown Sex and Gender Information Value Date Recorded Sex Assigned at Not on file 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 [place], [place] [address] Patient: TAMMY FARAH : 1955 Procedure Date: 03/02/2008 Accession Date: 03/03/2008 Case No: [id number] Ordering Dr: MARISA NATION Case types AW, BW, FW, NW and SH are performed by [facility] [place], [place], [place] SURGICAL PATHOLOGY & NON-GYNECOLOGIC CYTOPATHOLOGY REPORT DIAGNOSIS RIGHT BREAST, 9-GAUGE CORE BIOPSY: - COLUMNAR CELL CHANGE. - MICROCALCIFICATIONS PRESENT. Specimen Description: Right breast calcs. Operative Procedure: Core biopsy. Patient Information/History/Di agnosis: Calcifications; rule out DCIS. Gross: Received in a single container and labeled Tammy Farah. right breast calc are eight fibrofatty core biopsy tissues, each 0.3 cm in diameter and measuring 1.1, 1.0, 1.1, 1.3, 1.1, 1.5, 1.4, and 1.3 cm in lengths. The entire specimen is submitted as follows: in cassettes A1 and A2-three cores each; A3-two cores. [facility] 03.03.2008 12:12 pm Microscopic: Sections are labeled [id number], Tammy Farah. The core biopsy from the right breast [...] PM CDT Narrative 03/02/2008 4:[address] PM [address]T [address] [address] Admit Date: 03/02/2008 TAMMY FARAH Sex: F Admit Prov: ALICIA MYLES Date: 1955 Primary Care Prov: WARD CANDELARIO CMRN: [id number] Room: MATTHEW SSN: [id number] IMAGING SERVICES Ordering Prov: ALICIA MYLES Accession Number: [id number] Interpretation RIGHT BREAST STEREOTACTICALLY GUIDED CORE BIOPSY, BREAST SPECIMEN RADIOGRAPH, FOLLOWUP TWO-VIEW DIGITAL MAMMOGRAM, 03/02/2008 History: Clustered calcifications, upper-inner right breast. Stereotactically guided core biopsy for clustered calcifications in the upper-inner right breast was performed. Comparison is made with an outside mammogram from [facility] dated 02/10/2008. The overlying skin was cleansed [...] DKT Procedure Note Marisa Nation - 03/02/[address] [address] Admit Date: 03/02/2008 TAMMY FARAH Sex: F Admit Prov: ALICIA MYLES Date: 1955 Primary Care Prov: WARD CANDELARIO CMRN: [id number] Room: [facility] [place] SSN: [id number] IMAGING SERVICES Ordering Prov: ALICIA MYLES Interpretation RIGHT BREAST STEREOTACTICALLY GUIDED CORE BIOPSY, BREAST SPECIMEN RADIOGRAPH, FOLLOWUP TWO-VIEW DIGITAL MAMMOGRAM, 03/02/2008 History: Clustered calcifications, upper-inner right breast. Stereotactically guided core biopsy for clustered calcifications inthe upper-inner right breast was performed. Comparison is made with anoutside mammogram from [facility] dated 02/10/2008. The overlying skin was cleansed [...] DKT us Alicia Myles MD MAMMO ORDERABLES Final Resul t * MAMMO DIGITAL DIAG UNI RIGHT (03/02/2008 12:15 PM CDT) Anatomical Region Laterality Modality Breast Right Other 03/02/2008 12:1 5 PM CDT Narrative 03/05/2008 10:41 AM CDT [address] [address] Admit Date: 03/02/2008 TAMMY FARAH Sex: F Admit Prov: ALICIA MYLES Date: 1955 Primary Care Prov: WARD CANDELARIO CMRN: [id number] Room: [facility] SSN: [id number] IMAGING SERVICES Ordering Prov: ALICIA MYLES Accession Number: [id number] Addendum Pathology indicates benign columnar cell change [...] is made with an outside mammogram from [facility] dated 02/10/2008. The overlying skin was cleansed [...] DKT Procedure Note Marisa Nation - 03/05/2008 [facility] [address] [place], [place] [address] Admit Date: 03/02/2008 TAMMY FARAH Sex: F Admit Prov: ALICIA MYLES Date: 1955 Primary Care Prov: WARD CANDELARIO CMRN: [id number] Room: [facility] SSN: [id number] IMAGING SERVICES Ordering Prov: ALICIA MYLES Addendum [...] Comparison is made with anoutside mammogram from [facility] dated 02/10/2008. The overlying skin was cleansed [...] INTERFACE SYSTEM - 03/02/2008 4:33 PM CDT [address] [address] Admit Date: 03/02/2008 TAMMY FARAH Sex: F Admit Prov: ALICIA MYLES Date: 1955 Primary Care Prov: WARD CANDELARIO CMRN: [id number] Room: [facility] SSN: [id number] IMAGING SERVICES Ordering Prov: ALICIA MYLES Accession Number: [id number] Interpretation RIGHT BREAST STEREOTACTICALLY GUIDED CORE BIOPSY, BREAST SPECIMEN RADIOGRAPH, FOLLOWUP TWO-VIEW DIGITAL MAMMOGRAM, 03/02/2008 History: Clustered calcifications, upper-inner right breast. Stereotactically guided core biopsy for clustered calcifications in the upper-inner right breast was performed. Comparison is made with an outside mammogram from [facility] dated 02/10/2008. The overlying skin was cleansed [...] DKT Procedure Note Marisa Nation - 03/02/2008 [address] [place], [place] [address] Admit Date: 03/02/2008 TAMMY FARAH Sex: F Admit Prov: ALICIA MYLES Date: 1955 Primary Care Prov: WARD CANDELARIO CMRN: [id number] Room: [facility] SSN: [id number] IMAGING SERVICES Ordering Prov: ALICIA MYLES Interpretation RIGHT BREAST STEREOTACTICALLY GUIDED CORE BIOPSY, BREAST SPECIMEN RADIOGRAPH, FOLLOWUP TWO-VIEW DIGITAL MAMMOGRAM, 03/02/2008 History: Clustered calcifications, upper-inner right breast. Stereotactically guided core biopsy for clustered calcifications inthe upper-inner right breast was performed. Comparison is made with anoutside mammogram from [facility] dated 02/10/2008. The overlying skin was cleansed [...] MD DIAGNOSTIC IMAGING ORDERABLE S Final Result INTERFACE SYSTEM Refer to clinic/hospital department * MAMMO STEREOTACTIC BREAST BX RT (03/02/2008 12:14 PM CDT) Anatomical Region Laterality Modality Breast Right Other 03/02/2008 12:1 4 PM CDT Narrative 03/02/2008 4:33 PM CDT [facility] [address] [place], [place] [address] Admit Date: 03/02/2008 TAMMY FARAH Sex: F Admit Prov: ALICIA MYLES Date: 1955 Primary Care Prov: WARD CANDELARIO CMRN: [id number] Room: [facility] SSN: [id number] IMAGING SERVICES Ordering Prov: ALICIA MYLES Accession Number: [id number] Interpretation RIGHT BREAST STEREOTACTICALLY GUIDED CORE BIOPSY, BREAST SPECIMEN RADIOGRAPH, FOLLOWUP TWO-VIEW DIGITAL MAMMOGRAM, 03/02/2008 History: Clustered calcifications, upper-inner right breast. Stereotactically guided core biopsy for clustered calcifications in the upper-inner right breast was performed. Comparison is made with an outside mammogram from [facility] dated 02/10/2008. The overlying skin was cleansed [...] MARISA NATION 03/02/2008 16:33 Transcribed: 03/02/2008 15:25 DK Procedure Note Marisa Nation - 03/02/2008 [facility] [address] [place], [place] [address] Admit Date: 03/02/2008 TAMMY FARAH Sex: F Admit Prov: SHARDORIANALICIA Date: 1955 Primary Care Prov: WARD CANDELARIO CMRN: [id number] Room: [facility] [place] SSN: [id number] IMAGING SERVICES Ordering Prov: ALICIA MYLES Interpretation RIGHT BREAST STEREOTACTICALLY GUIDED CORE BIOPSY, BREAST SPECIMEN RADIOGRAPH, FOLLOWUP TWO-VIEW DIGITAL MAMMOGRAM, 03/02/2008 History: Clustered calcifications, upper-inner right breast. Stereotactically guided core biopsy for clustered calcifications inthe upper-inner right breast was performed. Comparison is made with anoutside mammogram from [facility] dated 02/10/2008. The overlying skin was cleansed [...] NATION 03/02/2008 16:33 Transcribed: 03/02/2008 15:25 DKT Alicia Myles MD MAMMO ORDERABLES Final Resul t documented in this encounter Visit Diagnoses Diagnosis Abnormal mammogram, unspecified Mammographic microcalcification Encounter for long-term (current) use of other medications documented in this encounter Care Teams Wood Veneer Taper Relationship Specialty Start Date End Date Ward Candelario MD PCP - General 08/24/08 documented as of this encounter
--- OUTSIDE RECORDS SUMMARY | 2025-05-25 13:23 | XMS_ITS | Encounter Summary ---
Author Organization [facility] Address [address] [place] [address] Care Team Providers Care Automatic Washer Mechanic Name Role Phone Luiz Choudhury MD Unavailable [phone] Ward Antonio MD Primary Care Provider [phone] Encounter Details Date Type Department Care Team (Late st Contact Info) Description 12/17/2023 Lab Requisition [facility] Physician [facility] - DermPath Lab [address] 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 Gender Identity Not on file Sexual Orientation Not on file documented as of this encounter Plan of Treatment Not on file documented as of this encounter Procedures Procedure Name Priority Date/Time Associated Diagnosis Comments DERMATOPATHOLOGY Routine 12/17/2023 2:05 PM CDT documented in this encounter Results * DERMATOPATHOLOGY (12/17/2023 2:05 PM CDT) Case Report Dermatopathology Report Case: [id number] Authorizing Provider: Christen Rodríguez MD Collected: 12/17/2023 02:05 PM Ordering Location: [facility] - Received: 12/18/2023 01:01 PM DermPath Lab Pathologist: Milena Virk MD Specimens: A) - Skin, left forearm B) - Skin, mid low back 4:58 PM CDT DERMATOPATHOLOGY LABORATORY Final Diagnosis Specimen A. SKIN, left forearm: ACTINIC KERATOSIS, LICHENOID (L57.0) Specimen B. SKIN, mid low back: PERSISTENT (RECURRENT) NEVUS (D22.9) 4 4:58 PM CDT DERMATOPATHOLOGY LABORATORY at 1658 CDT Clinical History A: [place] papule BCC B: Irregular brown papule R/O [...] characteristic determined by the Dermatopathology Laboratory at [facility], directed by Dr. Sirena Brady. These tests need not be, and therefore are not, approved by the [place] Food and Drug Administration. The tests are used for clinical purposes. Billing Codes Specimen Charges Stain Charges 57343 84896 1 1 56333 1 4 4:58 PM CDT DERMATOPATHOLOGY LABORATORY Embedded Images 4 4:58 PM CDT DERMATOPATHOLOGY LABORATORY Pathology/Cytology TISSUE SPECIMEN FROM SKIN / Unknown 12/17/2023 2:05 PM CDT 12/18/2023 1:01 PM CDT Miscellaneous samples (specimen) TISSUE SPECIMEN FROM SKIN / Unknown 12/17/2023 2:05 PM CDT 12/18/2023 1:01 PM CDT Christen Rodríguez MD LAB - PATHOLOGY/CYTOLOGY ORD ERABLES Final Result DERMATOPATHOLOGY LABORATORY [facility] - Department of Dermatology [facility] Medicine [address] [place] [address], [address] [phone] documented in this encounter Visit Diagnoses Not on filedocumented in this encounter Care Teams Automatic Washer Mechanic Relationship Specialty Start Date End Date Ward Antonio MD [address] [place] [phone] PCP - General Internal Medicine 10/09/11 Luiz Choudhury MD Orthopedic Surgery 10/09/11 documented as of this encounter
--- OUTSIDE RECORDS SUMMARY | 2025-05-25 13:23 | XMS_ITS | Clinical Summary ---
Author Organization [facility] Address [address] [place] [address] Care Team Providers Care Drapery And Upholstery Measurer Name Role Phone No, Physician Primary Care Provider [phone] Allergies Active Allergy Reactions Criticality Noted Date [...] total) by mouth daily 90 capsule 2 04/20/2025 Active Active Problems Problem Noted Date Diagnosed Date Other osteoporosis without current pathological fracture 01/23/2024 Atrial fibrillation 12/02/2019 Atrial flutter 12/02/2019 Palpitations 09/27/2016 Supraventricular tachycardia 06/30/2016 Encounters Date Type Department Care Team Description 04/09/2025 1:30 PM CDT Infusion [facility] [address] [place] [address] [address] [place] [address] Other osteoporosis without current pathological fracture (Primary Dx); Age-related osteoporosis without current pathological fracture 04/03/2025 Orders Only [facility] [address] [place] [address] Tresa Posada RN 03/29/2025 Results Follow-Up [facility] [address] [facility] [facility] [address] [place] [address] Kary Armando MD Basic metabolic panel, Vitamin D 25 hydroxy 03/23/2025 Orders Only [facility] [address] [facility] [facility] [address] [place] [address] Kary Armando MD from Last 3 Months Surgical History Surgery Date Site/Laterality Comments FOOT SURGERY 05/25/2018 - 06/24/2018 Right Medical History Medical History Date Comments Hx Other Medical Chronic pain; C omments: B 09/04/2016 - Anxiety disorder Anxiety Hx Other Medical Headache; Comme nts: MPB 09/04/2016 - Hx Other Medical Arthritis; Comm ents: MPB 09/04/2016 - Hx Other Medical Palpitation; Co mments: [facility] 09/04/2016 - Family History Medical History [...] the money to buy more. Never true 04/09/20 25 Within the past 12 months, t he food you bought just didn't last and you didn't have money to get more. Never true 04/09/2025 Personal Safety Answer Date Recorded Have you ever been in or are you currently in a harmful physical or emotional relationship or is someone making you feel afraid or unsafe? 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 Gender Identity Female 03/15/2020 10:12 AM CDT Sexual Orientation Not on file Last Filed Vital Signs Vital Sign Reading Time Taken Comments Blood Pressure 144/86 04/09/2025 1:15 PM CDT Pulse 71 04/09/2025 1:15 PM CDT Temperature 36.3 C (97.4 F) 04/09/2025 1:12 PM CDT Respiratory Rate 15 02/18/2024 1:30 PM CDT Oxygen Saturation 97% 04/09/2025 1:15 PM CDT Inhaled Oxygen Concentration - - Weight 66.7 kg (147 lb) 04/09/2025 1:12 PM CDT Height 168.9 cm (5' 6.5) 12/17/2024 2:22 PM CDT Body Mass Index 23.37 12/17/2024 2:22 PM CDT Plan of Treatment Health Maintenance Due Date Last Done Comments Colon Cancer Screening-Colonoscopy 1955 Depression Screening 1955 Fall Risk Assessment 1955 Hepatitis C Screening 1955 Hepatitis B Screening 1975 Pneumococcal vaccine 65+ (1 of 1 - PCV) 2007 Breast Cancer Screening-Mammogram 04/29/2016 015, 05/28/2013 Well Visit 65+ 2022 Influenza Vaccine (#1) 2025 04/13/2020, 2018 Osteoporosis Screening-Bone Density Scan 12/17/2026 12/17/2024, 12/11/2023, 12/06/2021, Additional history exists DTaP/Tdap/Td Vaccine (2 - Td or Tdap) 03/07/2028 03/07/2018 Zoster Vaccine Completed 07/11/2019, 06/25, 05/06/2019, Additional history exists Procedures Procedure Name Priority Date/Time Associated Diagnosis Comments VITAMIN D 25 HYDROXY Routine 03/23/2025 1:18 PM CDT BASIC METABOLIC PANEL Routine 03/23/2025 1:18 PM CDT DEXA TBS AXIAL SKELETON BONE DENSITY 1 OR MORE SITES Schedule Routine, Read Routine (OP Routine) 12/17/2024 2:16 PM CDT Age-related osteoporosis without current pathological fracture from Last 3 Months or Most Recently Relevant to Health Maintenance Results * Vitamin D 25 hydroxy (03/23/2025 1:18 PM CDT) Vitamin D 25-OH 66 30 - 100 ng/mL [facility] Comment: Vitamin D Status 25-OH Vitamin D: Deficiency: <20 ng/mL Insufficiency: 20 - 29 ng/mL Optimal: > or = 30 ng/mL For 25-OH Vitamin D testing on patients on D2-supplementation and patients for whom quantitation of D2 and D3 fractions is required, the QuestAssureD(TM) 25-OH VIT D, (D2,D3), LC/MS/MS is recommended: order code 18733 (patients >2yrs). See Note 1 Note 1 For additional information, please refer to http://education.[employer].1-800-DOCTORS/faq/UQJ088 (This link is being provided for informational/ educational purposes only.) 03/23/2025 1:18 PM CDT 03/23/2025 1:19 PM CDT Kary Armando MD LAB BLOOD ORDERABLES Final Re sult Performing Organization Address [facility] Co de Phone Number [facility] [address] [place] [address] * Basic metabolic panel (03/23/2025 1:18 PM CDT) Glucose 81 65 - 99 mg/dL [facility] Comment: Fasting reference interval BUN 24 7 - 25 mg/dL [facility] Creatinine 0.82 0.50 - 1.05 mg/dL [facility] eGFR 78 > OR = 60 mL/min/1.7 3m2 [facility] BUN/creat ratio SEE NOTE: 6 - 22 (calc) [facility] Comment: Not Reported: BUN and Creatinine are within reference range. Sodium 143 135 - 146 mmol/L [facility] Potassium, pl 3.8 3.5 - 5.3 mmol/L [facility] Chloride 106 98 - 110 mmol/L [facility] CO2 29 20 - 32 mmol/L [facility] Calcium 9.7 8.6 - 10.4 mg/dL [facility] 03/23/2025 1:18 PM CDT 03/23/2025 1:19 PM CDT Kary Armando MD LAB BLOOD ORDERABLES Final Re sult Performing Organization Address [facility] Co de Phone Number [facility] [address] [place] [address] * Dexa TBS Axial Skeleton Bone Density 1 or more sites (12/17/2024 2:16 PM CDT) Anatomical Region Laterality Modality Wrist, Body N/A Radiographic Sue ging Narrative 12/17/2024 4:16 PM CDT Patient Name: Tammy Farah Date of : 1955 Date of scan: 12/17/2024 Bone mineral density was performed on a [employer] Discovery Densitometer. Based on machine cross-calibration [...] by the International Society of Clinical Densitometry. [id number] Kary Armando MD IMG DXA PROCEDURES Final Resu lt from Last 3 Months or Most Recently Relevant to Health Maintenance Insurance [employer] MEDICARE [facility] Care Teams Drapery And Upholstery Measurer Relationship Specialty Start Date End Date No, Physician PCP - General 11/26/18
== END 2025-05-25 12:00 | disposition home or self-care (01) ==
LOC: ANHFOHIMG 12:00
PROVIDERS: PCP Family Medicine; Visit Provider Obstetrics & Gynecology
DX: R92.8 Other abnormal and inconclusive findings on diagnostic imaging of breast (principal)
CPT/HCPCS: 76642; 77062; 77066; G0279